=== PATIENT | male | born 1940 | race Caucasian/White ===

== ENCOUNTER → 2016-05-20 | Day surgery (SDC) | payer OTHER ==
[~2016-05-20] VITALS: Ht 175.3 cm; Wt 136.1 kg
[~2016-05-20] MED LIST: AMARYL4 M1 PO; AMBIEN (MONOGRAP5 MG PO; AMBIEN5 M1 PO; ASPIRIN325 M2 PO; B-COMPLEX1 TAB PO; BYDUREON P2 MG/0.65 SC; CALCIUM 600600 M1 PO; CALCIUM600 M2 PO; CIPRO500 M1 PO; CLARITIN10 M1 PO; CYCLOBENZAPRIN7.5 M1 PO; FINASTERIDE5 MG PO; FLONASE ALLERG9.9 ML; GLIMEPIRIDE4 MG PO; GOOD SENSE ASP325 MG PO; JANUMET 50-1,01 EACH PO; JANUMET 500 MG-1 TAB PO; LYRICA75 M1 PO; LYRICA75 MG PO; METFORMIN HCL1000 M2 PO; METOPROLOL SUCC ER 5; MULTI-DAY VITA1 EACH PO; MULTIVITAMIN1 TAB PO; NIASPAN500 M1 PO; NIASPAN500 MG PO; NITROSTAT 0.4MG1 BO2 SL; OXYCODONE HCL10 M2 PO; PERCOCET 325 MG1 TA3 PO; PRAVACHOL20 M2 PO; PRAVASTATIN40 MG PO; PRINIVIL 5MG5 MG PO; PRINIVIL5 M1 PO; PROTONIX40 M3 PO; REQUIP1 M1 PO; ROPINIROLE HYDRO1 MG PO; TAMSULOSIN HCL0.4 M1 PO; TAMSULOSIN HYD0.4 MG PO; TOPROL XL 25MG25 MG PO; TOPROL XL 50MG50 MG PO; TOPROL XL25 M1 PO; TOPROL XL50 M1 PO; VOLTAREN GEL1% TOP; ZOLPIDEM TARTRAT5 M1 PO; [UNRECOGNIZED DRUG - OTHER]
--- NOTE | 2016-05-20 11:25 | Operative Report ---
Operative/Inv Procedure Report Surgery Date: 05/20/16 Name of Procedure: cystoscopy: LEFT ureteroscopy laser lithotrypsy of ureter stone. Left stent placement. 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 left upper pole calyx with strictured calyx obstructing access to calyx stones. Post-Operative Diagnosis: left ureter stone with stricture, and left UP strictured calyx with stones. Estimated Blood Loss: scant Surgeon/Bag Machine Helper: MARC FRASER MD Anesthesia: laryngeal mask airway Specimens: left ureter stone. Complications: none Operative/Procedure Note Note: The patient was taken to the operating room, and placed on the OR table in supine position. Timeout was performed, with the patient awake, in order to confirm correct identity, procedure, laterality, anesthesia, and other pertinent perioperative information. After adequate anesthesia and antibiotics, the patient was then placed lithotomy stirrups, draped and prepped in the usual surgical fashion. A 22 Togolese cystoscope sheath with 30 angle lens was inserted into the bladder without difficulty. Upon entering the bladder, the bladder was noted to be free of tumor free of stone. Both orifices were in their orthotopic position. The left ureter orifice was intubated with an 8fr cone-tip catheter and a retrograde pyelogram with fluoroscopy was performed revealing the 6 mm mid-left ureter stone, mid-ureter stricture, and proximal mild hydronephrosis. The cone-tipped catheter was removed, followed by insertion of a 0.035 Glidewire. The gluidewire was advanced into the left renal pelvis without difficulty. Correct placement of the wire was confirmed with fluoroscopy. Leaving the Glidewire in place, a flexible ureteroscope was advanced/rail-roaded over the gluidewire (with fluoroscopic visualization) and advanced into the bladder, and then into the left ureter, without significant difficulty. The ureteroscope was ealily advanced/inserted under direct visualization. Pyeloscopy and calyxoscopy was performed revealing no visible stones, but with findings noted in this report of upper calyx stone-obstructed lumen. The ureteroscope was retracted to the level of the mid ureter, and the ureteral stone was visualized. Under direct visualization the 200 g holmium YAG laser fiber was inserted through the ureteroscope. With the laser fiber in direct contact with the stone, laser lithotripsy was performed in order to pulverize the stone into multiple tiny fragments. The fragments were extracted by the [employer] and sent to pathology. The entire length of the ureter was visualize carefully on the way out with the ureteroscope, and no further stones, tumor, or strictures were confirmed. The 22 Togolese cystoscope sheath with a 30 angle lens was inserted once again, into the bladder. The left orifice was visualized, and a 0.035 Glidewire was then advanced into the left ureter. The Glidewire was advanced into the left renal pelvis, with fluoroscopic visualization, without difficulty. Over this Glidewire, a 6 x 22 Bard onlay stent was railroaded, with direct cystoscopic visualization, and fluoroscopic visualization. When the stent was in proper place, the Glidewire was removed, and the stent remained in good position. The bladder was then drained after the cystoscope was removed. The patient tolerated the procedures well, and was then taken to the recovery room in satisfactory condition. After discharge with abx. and pain meds, the patient is insturcted to have follow renal US, and post-op visit in 2-4 weeks. Findings: left mid ureter stricture, left 6mm ureter stone. left upper pole calyx with scarred lumen resulting in obstruction and inaccessable calyx stones. Discharge Disposition: PACU Additional Comments: will need to keep stent for 6 weeks. CC: MARC FRASER MD
--- NOTE | 2016-05-20 14:53 | RADIOLOGY REPORT ---
EXAMINATION: XR ABDOMEN CLINICAL INDICATION: History of left sided ureteroscopy, lithotripsy and stent placement. COMPARISON: CT abdomen and pelvis, 05/14/2016. TECHNIQUE: Intraoperative C-arm fluoroscopic imaging of the left abdomen was utilized. Four spot fluoroscopy images of the left abdomen are submitted into the electronic picture archive. FLUOROSCOPY TIME: 1.4 minutes. DOSE: 26.1 mGy FINDINGS: Please refer to the operative report regarding the intraoperative findings and the specific procedures performed. The last two saved images demonstrate a left ureteral stent in place; the proximal loop of the stent is at the level of the renal pelvis and distal loop is at the level of the bladder. IMPRESSION: Fluoroscopic imaging assistance was provided to the operating room for urologic procedures.
== END ==
LOC: STS 02:07
DX: N13.2 Hydronephrosis with renal and ureteral calculous obstruction (principal); N13.1 Hydronephrosis with ureteral stricture, not elsewhere classified; N28.9 Disorder of kidney and ureter, unspecified; I10 Essential (primary) hypertension; E11.9 Type 2 diabetes mellitus without complications; Z79.84 Long term (current) use of oral hypoglycemic drugs
CPT/HCPCS: 74000; 82355; C2617; J0131; J1100; J2250; J2405

== ENCOUNTER 2016-07-04 08:29 | Inpatient (IN) | payer OTHER ==
[~2016-07-04] VITALS: Ht 175.3 cm; Wt 131.5 kg
[~2016-07-04 08:29] MED LIST changes: -BYDUREON P2 MG/0.65 SC; -CYCLOBENZAPRIN7.5 M1 PO; -FLONASE ALLERG9.9 ML; -LYRICA75 M1 PO; -METFORMIN HCL1000 M2 PO; -OXYCODONE HCL10 M2 PO; -TAMSULOSIN HCL0.4 M1 PO; -TOPROL XL50 M1 PO; -ZOLPIDEM TARTRAT5 M1 PO
--- NOTE | 2016-07-04 08:42 | NUR ---
76 Y/O MALE BIBA FROM HOME FOR EVAL OF LOWER EXTREMITY PAIN AND FEVERS SINCE THURSDAY. PT STATES HE HAD A STENT REMOVED BY DR FRASER AND BEGAN NOT FEELING WELL THE NEXT DAY (). PT REPORTS GENERAL PAIN - TO UPPER BACK, BILATERAL LOWER EXTREMITIES AND "WAIST". PT DENIES N/V/D. DENIES CHEST PAIN. DENIES SOB. STATES HE HAD A FEVER AT HOME, 99.6 ON ARRIVAL TO ED. DEYA NAJERA H INTO EVAL.
--- NOTE | 2016-07-04 08:46 | ED GENERAL ADULT ---
History of Present Illness General Chief Complaint: General Adult Stated Complaint: BIBA PAIN FROM WAIST DOWN, FEVER Source: patient, family, old records, EMS Exam Limitations: no limitations Vital Signs & Intake/Output Vital Signs & Intake/Output Vital Signs Date Time Temp Pulse Resp B/P Pulse O2 O2 Flow FiO2 Ox Delivery Rate 07/04 1819 92 Room Air 07/04 1819 99.6 95 20 118/74 92 Room Air 07/04 1717 94 Room Air 07/04 1645 99.2 94 18 142/65 94 Room Air 07/04 1439 98.7 94 18 123/71 95 Room Air 07/04 1308 100 Room Air 07/04 1058 99.0 07/04 1038 99.0 96 18 127/58 97 Room Air 07/04 0837 96 Room Air 07/04 0832 100.6 110 16 140/72 96 Room Air Allergies Coded Allergies: fentanyl (GI UPSET 06/22/15) Uncoded Allergies: med used during stress test (UNKNOWN 01/14/16) Triage Note: 76 Y/O MALE LADI FROM HOME FOR EVAL OF LOWER EXTREMITY PAIN AND FEVERS SINCE THURSDAY. PT STATES HE HAD A STENT REMOVED BY DR MEYERS AND BEGAN NOT FEELING WELL THE NEXT DAY (). PT REPORTS GENERAL PAIN - TO UPPER BACK, BILATERAL LOWER EXTREMITIES AND "WAIST". PT DENIES N/V/D. DENIES CHEST PAIN. DENIES SOB. STATES HE HAD A FEVER AT HOME, 99.6 ON ARRIVAL TO ED. DEYA Marrero INTO EVAL. Triage Nurses Notes Reviewed? yes HPI: Patient is a 76-year-old male presents complaining of fevers, diffuse body aches , generalized weakness, left low back pain. Patient reports that Thursday he had a left sided ureteral stent removed by Dr. Meyers. Body aches began at 7 PM. Pain is diffuse, severe, no improvement with taking an additional dose of his 10mg oxycodone. Fever up to 101.6F. Positive associated nausea. Patient denies dysuria, hematuria, cough, dyspnea, chest pain, rashes. (BALTAZAR OSWALD) Reconcile Medications Aspirin (Aspirin*) 325 MG TABLET 1 TAB PO DAILY BLOOD THINNER (Reported) Exenatide Microspheres (Bydureon Pen) 2 MG/0.65 ML PEN.INJCTR 1 INJ SC ONCE A WEEK DIABETES (Reported) Glimepiride (Amaryl) 4 MG TABLET 1 TAB PO DAILY DIABETES (Reported) Lisinopril (Prinivil) 5 MG TABLET 1 TAB PO DAILY BP (Reported) Loratadine (Claritin) 10 MG TAB 10 MG PO DAILY ALLERGIES (Reported) Metoprolol Succ XL (Toprol Xl) 50 MG TAB 1 TAB PO DAILY BLOOD PRESSURE ( Reported) Multivitamin (Multi-Day Vitamins) 1 EACH TABLET 1 TAB PO DAILY SUPPLEMENT ( Reported) Niacin (Niaspan) 500 MG TAB.ER.24H 1 TAB PO QPM CHOLESTEROL (Reported) Oxycodone HCl 10 MG TABLET 1 TAB PO BID PRN pain (Reported) Pantoprazole Sodium (Protonix) 40 MG TAB 40 MG PO DAILY GERD (Reported) Pravastatin Sodium (Pravachol) 20 MG TABLET 1 TAB PO QPM CHOLESTEROL ( Reported) Pregabalin (Lyrica) 75 MG CAP 1 CAP PO BID PAIN (Reported) Ropinirole HCl (Requip) 1 MG TABLET 1 TAB PO QPM RESTLESS LEGS (Reported) Sitagliptin Phos/Metformin HCl (Janumet 50-1,000 MG Tablet) 1 EACH TABLET 1 TAB PO BID DIABETES (Reported) Tamsulosin HCl 0.4 MG CAP.ER.24H 0.5 CAP PO DAILY URINARY OBSTRUCTION ( Reported) Vitamin B [id number] (B-Complex) 1 TAB TAB 1 TAB PO DAILY SUPPLEMENT (Reported ) (DAJA PEREIRA DO) Past History Travel History Traveled to [place] past 21 day No Medical History Any Pertinent Medical History? 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 No (REAL FALK,BALTAZAR) Review of Systems Review of Systems Constitutional: Reports: chills, fever, malaise, weakness. EENTM: Reports: no symptoms. Respiratory: Denies: cough, short of breath. Cardiovascular: Denies: chest pain. GI: Reports: nausea. Denies: abdominal pain, diarrhea, distention, vomiting. Genitourinary: Reports: see HPI. Denies: dysuria, hematuria. Musculoskeletal: Reports: see HPI, back pain, muscle pain. Skin: Denies: rash. Neurological/Psychological: Reports: no symptoms. Hematologic/Endocrine: Reports: no symptoms. Immunologic/Allergic: Reports: no symptoms. (BALTAZAR OSWALD) Physical Exam Physical Exam General Appearance: alert, awake, obese Head: atraumatic, normal appearance Eyes: Bilateral: normal appearance, PERRL, EOMI. Ears, Nose, Throat: normal pharynx, normal ENT inspection, hearing grossly normal Neck: normal inspection, supple, full range of motion Respiratory: normal breath sounds, chest non-tender, no respiratory distress, lungs clear Cardiovascular: tachycardia (regular rhythm), systolic murmur Peripheral Pulses: 2+ dorsalis pedis (R), 2+ dorsalis pedis (L) Gastrointestinal: soft, non-tender Back: normal inspection, normal range of motion, no cva tenderness, no midline tenderness Extremities: normal inspection, normal capillary refill, normal range of motion, no edema Neurologic/Psych: awake, alert, oriented x 3, normal mood/affect Skin: intact, normal color, warm/dry Lymphatic: no anterior cervical bernardo Core Measures ACS in differential dx? No CVA/TIA Diagnosis: No Severe Sepsis Present: No Septic Shock Present: No (BALTAZAR OSWALD) Progress Differential Diagnoses I considered the following diagnoses in my evaluation of the patient: Sepsis, influenza, urinary tract infection, pneumonia, electrolyte abnormality, viral syndrome Plan of Care: Orders Procedure Date/time Status CBC WITHOUT DIFFERENTIAL 07/05 599 Active BASIC ELECTROLYTES PLUS BUN&CR 07/05 0500 Active Consistent Carbohydrate 2 07/04 L Complete Consistent Carbohydrate 3 07/04 D Active Vital Signs 07/04 1814 Active Teach/Educate 07/04 1814 Active Pain Treatment and Response 07/04 1814 Active Nutritional Intake, Monitor 07/04 1814 Active Isolation 07/04 1814 Active Intake & Output 07/04 1814 Active Patient Care Conference 07/04 1814 Active Activity/Ambulation 03/10 1815 Active Pathway - chart 07/04 1530 Active House Staff 07/04 1530 Active Code Status 07/04 1530 Active Admit to inpatient 07/04 1412 Active Vital Signs 07/04 1412 Active Code Status 07/04 1412 Complete Patient Data 07/04 1304 Active RAPID VIRAL INFLUENZA A 07/04 0908 Complete Intake & Output 07/04 0906 Active FingerStick- Glucose 07/04 0843 Complete CULTURE,URINE 07/04 0842 Active BLOOD CULTURE 07/04 0842 Active URINALYSIS 07/04 0842 Complete LACTIC ACID 07/04 0842 Complete COMPREHENSIVE METABOLIC PANEL 07/04 0842 Complete CBC WITHOUT DIFFERENTIAL 07/04 0842 Complete VTE Mechanical Prophylaxis 07/04 UNK Active FingerStick- Glucose 07/04 UNK Active Activity/Ambulation 07/04 UNK Active Current Medications Sig/Lux Start time Last Medication Dose Stop Time Status Admin Ceftriaxone Sodium 1,000 MG Q24 07/05 1000 AC (Rocephin) Lisinopril 5 MG DAILY 07/05 1000 AC (Prinivil) Metoprolol Succinate 50 MG DAILY 07/05 1000 AC (Toprol Xl) Patient Medication 1 UNIT 1000 07/05 1000 AC Teaching 07/05 1001 (JACK INHIBITOR EDUCATION) Patient Medication 1 UNIT 1000 07/05 1000 AC Teaching 07/05 1001 (BETA DANNA EDUCATION) Patient Medication 1 UNIT 1000 07/05 1000 AC Teaching 07/05 1001 (ANTIBIOTIC EDUCATION) Tamsulosin HCl 0.4 MG DAILY 07/05 1000 AC (Flomax) Omeprazole 40 MG DAILY AC 07/05 0700 AC (Prilosec) Patient Medication 1 UNIT 0700 07/05 0700 AC Teaching 07/05 0701 (PROTON PUMP INHIBITOR EDUCATION) Patient Medication 1 UNIT 2200 07/04 2200 AC Teaching 07/04 220 (STATIN EDUCATION) Pravastatin Sodium 20 MG QPM 07/04 2200 AC (Pravachol) Pregabalin 75 MG BID 07/04 2200 AC (Lyrica) Insulin Aspart 0 TIDAC 07/04 1700 AC (NovoLOG) Nicotinic Acid 500 MG WITH MEALS 07/04 1700 AC (Niacin 500MG Tab) Ropinirole HCl 1 MG QPM PRN 07/04 1545 AC (Requip) Acetaminophen 650 MG Q8P PRN 07/04 1530 AC (Tylenol) Oxycodone/ 1 TAB Q8P PRN 07/04 1530 AC Acetaminophen (Percocet) Laboratory Tests 07/04/16 1142: Lactic Acid Cancelled 07/04/16 1025: Urine Color YEL, Urine Clarity CLEAR, Urine pH 6.0, Ur Specific [place] 1.015, Urine Protein TRACE H, Urine Ketones NEG, Urine Nitrite NEG, Urine Bilirubin NEG, Urine Urobilinogen 0.2, Ur Leukocyte Esterase SMALL H, Ur Microscopic SEDIMENT EXAMINED, Urine RBC 10-15 H, Urine WBC 5-10 H, Ur Epithelial Cells RARE, Urine Bacteria RARE H, Hyaline Casts RARE H, Urine Mucus MOD H, Urine Hemoglobin SMALL H, Urine Glucose 100 H 07/04/16 0944: Anion Gap 11, Estimated GFR 49 L, BUN/Creatinine Ratio 15.0, Glucose 210 H, Lactic Acid 2.1, Calcium 9.3, Total Bilirubin 0.7, AST 22, ALT 25, Alkaline Phosphatase 65, Total Protein 7.2, Albumin 4.1, Globulin 3.1, Albumin/Globulin Ratio 1.3, CBC w Diff MAN DIFF ORDERED, RBC 4.29 L, MCV 86.6, MCH 29.2, RDW 14.5, MPV 7.9, Gran % 81.7 H, Lymphocytes % 12.3 L, Monocytes % 5.4, Eosinophils % 0, Basophils % 0.6, Absolute Granulocytes 15.8 H, Segmented Neutrophils 76 H, Band Neutrophils 1, Absolute Lymphocytes 2.4, Lymphocytes 14 L, Monocytes 9, Absolute Monocytes 1.0 H, Absolute Eosinophils 0, Absolute Basophils 0.1, Platelet Estimate ADEQUATE, Normocytic RBCs VERIFIED, Normochromic RBCs VERIFIED, PUBS MCHC 33.7 Microbiology 07/04 1058 BLOOD: Blood Culture - RECD 07/04 1050 BLOOD: Blood Culture - RECD 07/04 1025 URINE ROUT: Urine Culture - RECD 07/04 0944 NASOPHARYN: Influenza Virus A & B Rapid Smear - COMP 07/04/2016 8:51:39 AM: Discussed with and seen by Dr. Pereira 07/04/2016 10:19:33 AM: Patient reports feeling moderately improved. Continues with bilateral lower extremity weakness but reports he has improving range of motion and strength. Results of CBC discussed with patient. Awaiting urinalysis. 07/04/2016 11:12:42 AM: Results of labs and ultrasound discussed with patient and his family. Dr. Meyers paged. 07/04/2016 11:31:49 AM: Discussed with Dr. Meyers: give 1 gram of ceftriaxone. If patient clinically stable then can discharge on 500mg cipro BID x 10 days. 07/04/2016 12:49:07 PM: Patient seen by Dr. Meyers: recommends admission for IV antibiotics. (REAL FALK,BALTAZAR) Diagnostic Imaging: Viewed by Me: Ultrasound. Discussed w/RAD: Ultrasound. Radiology Impression: PATIENT: MONY COYLE PRESENT AGE: 76 PATIENT ACCOUNT NO: [id number] : 41 LOCATION: [facility] ORDERING PHYSICIAN: BALTAZAR FALK SERVICE DATE: 07/04/16 EXAM TYPE: US - US-RENAL/KIDNEY EXAMINATION: US RETROPERITONEAL COMPLETE (RENAL) CLINICAL INFORMATION: Left-sided back pain, history of urolithiasis and hydronephrosis. COMPARISON: CT dated 05/14/2016. TECHNIQUE: Real-time imaging of the kidneys and bladder. Selected static images provided for interpretation. Exam is limited due to patient body habitus, especially the upper poles. FINDINGS: RIGHT KIDNEY: 10.6 x 5.2 x 5.4 cm (SAG x AP x TRV). The visualized right kidney is normal in size, contour, and echogenicity. Renal cortical thickness is normal. No calculi or focal parenchymal lesions. No hydronephrosis. LEFT KIDNEY: 11.2 x 6.0 x 6.3 cm (SAG x AP x TRV). There is a 0.7 cm maximal dimension echogenic focus in the upper pole of the right kidney consistent with a residual calculus. The kidney is normal in size, contour, and echogenicity. Renal cortical thickness is normal. There is no hydronephrosis. BLADDER: Moderately fluid-filled containing 153 mL. A left ureteral jet is identified, the right ureteral jet is not seen. IMPRESSION: Limited exam, small residual left upper renal pole calculus is suspected. There is no hydronephrosis on today's exam. DICTATED BY: LUCIANO RAMÍREZ MD DATE/TIME DICTATED:07/04/16949 MEDICAL CONCIERGE:JANET DATE/TIME TRANSCRIBED:07/04/16949 CONFIDENTIAL, DO NOT COPY WITHOUT APPROPRIATE AUTHORIZATION. <Electronically signed in Other Vendor System> SIGNED BY: LUCIANO RAMÍREZ MD 07/04/16 1100 Initial ED EKG: none (BALTAZAR OSWALD) Departure Departure Disposition: STILL A PATIENT Condition: Stable Clinical Impression Primary Impression: Sepsis secondary to UTI Referrals: INDIGO ALFARO MD (PCP/Family) Departure Forms: Customer Survey General Discharge Information Admission Note Spoke With: ERMELINDA HOLLOWAY MD Documentation of Exam: Documentation of any treatments & extenuating circumstances including Concerns Regarding Discharge (functional status, medication knowledge or non-compliance, living conditions, etc.) that warrant an admission rather than observation: IV antibiotics and close monitoring. With patient's diabetes is generalized weakness, fevers with elevated white blood cell count and tachycardia and presentation patient is criteria for sepsis. Concern that patient would deteriorate if discharged home on oral antibiotics. (BALTAZAR OSWALD) PA/RIDES SUPERVISOR Co-Sign Statement Statement: ED Attending supervision documentation- [X] I saw and evaluated the patient. I have also reviewed all the pertinent lab results and diagnostic results. I agree with the findings and the plan of care as documented in the PA's/RIDES SUPERVISOR's documentation. [] I have reviewed the ED Record and agree with the PA's/RIDES SUPERVISOR's documentation. [] Additions or exceptions (if any) to the PAs/RIDES SUPERVISOR's note and plan are summarized below: [] (DAJA PEREIRA DO) Critical Care Note Critical Care Note Critical Care Time: non-applicable (BALTAZAR OSWALD)
[2016-07-04] MEDS ORDERED: OXYCODONE HCL10 M2 PO (08:58)
--- NOTE | 2016-07-04 09:05 | NUR ---
IV EST. NORMAL SALINE INFUSING. MED WITH DILAUDID AND ZOFRAN PER JUN. PT DENIES KNOWN ALLERGY TO SAME STATING HE HAS HAD DILAUDID BEFORE. MED WITH TYLENOL PO. TOLERATED WELL. TAKEN TO US VIA STRETCHER
--- NOTE | 2016-07-04 09:47 | NUR ---
BLOOD DRAWN AND SENT TO THE LAB (SST,LAV,BLUE,PINK,[facility])
--- NOTE | 2016-07-04 09:54 | NUR ---
BACK FROM US. FLU SWAB OBTAINED AND SENT. DENIES COMPLAINTS, DENIES NEEDING ANYTHING AT THIS TIME.
[2016-07-04] MEDS ORDERED: BYDUREON P2 MG/0.65 SC (09:57)
[2016-07-04 09:59] LABS: ABSOLUTE BASOPHIL COUNT 0.1 /CUMM (0.0-0.2); ABSOLUTE EOSINOPHIL COUNT 0 /CUMM (0.0-0.7); ABSOLUTE GRANULOCYTE CT 15.8 /CUMM (1.4-6.5); ABSOLUTE LYMPH COUNT 2.4 /CUMM (1.2-3.4); BASOPHIL % 0.6 % (0.0-2.0); EOSINOPHIL % 0 % (0-5); GRANULOCYTE % 81.7 % (42.2-75.2); HEMATOCRIT 37.2 % (42-52); MEAN CORPUSCULAR HGB 29.2 PG (27.0-31.0); MEAN CORPUSCULAR HGB CONC 33.7 G/DL (33.0-37.0); MEAN CORPUSCULAR VOLUME 86.6 FL (80.0-94.0); MEAN PLATELET VOLUME 7.9 FL (7.4-10.4); PLATELET COUNT 223 /CUMM (130-400); RBC DISTRIBUTION WIDTH 14.5 % (11.5-14.5); RED BLOOD CELL CT 4.29 /CUMM (4.70-6.10); WHITE BLOOD CELL COUNT 19.3 /CUMM (4.8-10.8)
--- NOTE | 2016-07-04 11:00 | ULTRASOUND REPORT ---
EXAMINATION: US RETROPERITONEAL COMPLETE (RENAL) CLINICAL INFORMATION: Left-sided back pain, history of urolithiasis and hydronephrosis. COMPARISON: CT dated 05/14/2016. TECHNIQUE: Real-time imaging of the kidneys and bladder. Selected static images provided for interpretation. Exam is limited due to patient body habitus, especially the upper poles. FINDINGS: RIGHT KIDNEY: 10.6 x 5.2 x 5.4 cm (SAG x AP x TRV). The visualized right kidney is normal in size, contour, and echogenicity. Renal cortical thickness is normal. No calculi or focal parenchymal lesions. No hydronephrosis. LEFT KIDNEY: 11.2 x 6.0 x 6.3 cm (SAG x AP x TRV). There is a 0.7 cm maximal dimension echogenic focus in the upper pole of the right kidney consistent with a residual calculus. The kidney is normal in size, contour, and echogenicity. Renal cortical thickness is normal. There is no hydronephrosis. BLADDER: Moderately fluid-filled containing 153 mL. A left ureteral jet is identified, the right ureteral jet is not seen. IMPRESSION: Limited exam, small residual left upper renal pole calculus is suspected. There is no hydronephrosis on today's exam.
--- NOTE | 2016-07-04 11:06 | NUR ---
2ND LITER INFUSING PER JUN PT STATES PAIN IS NOW 8/10. MEDICATED WITH ADDITIONAL 1MG DILAUDID PER JUN DEYA TOBAR DISCUSS RESULTS.
--- NOTE | 2016-07-04 11:44 | NUR ---
PT DENIES COMPLAINTS LUNCH ORDERED - OK WITH DEYA RYAN WITH MAGDALENO PER MAR
--- NOTE | 2016-07-04 12:16 | NUR ---
PT SITTING UP AT EDGE OF BED EATING LUNCH TRAY DENIES COMPLAINTS.
--- NOTE | 2016-07-04 12:49 | NUR ---
DR FRASER INTO EVAL
--- NOTE | 2016-07-04 13:09 | Cons- Urology ---
General Information and HPI Consulting Request Date of Consult: 07/04/16 Requested By: gabriela perez [facility]reg[facility]-emergency dept. Reason for Consult: uti-fatigue Source of Information: patient Exam Limitations: no limitations History of Present Illness: 76 year old with complex hx stones and uti. doing well for months with left stent--removed in office after receiving IV gentamicin 160mg. Today with severe weekness and overall ache. AOx3. Allergies/Medications Allergies: Coded Allergies: fentanyl (GI UPSET 06/22/15) Uncoded Allergies: med used during stress test (UNKNOWN 01/14/16) Home Med List: Aspirin (Aspirin*) 325 MG TABLET 1 TAB PO DAILY BLOOD THINNER (Reported) Exenatide Microspheres (Bydureon Pen) 2 MG/0.65 ML PEN.INJCTR 1 INJ SC ONCE A WEEK DIABETES (Reported) Glimepiride (Amaryl) 4 MG TABLET 1 TAB PO DAILY DIABETES (Reported) Lisinopril (Prinivil) 5 MG TABLET 1 TAB PO DAILY BP (Reported) Loratadine (Claritin) 10 MG TAB 10 MG PO DAILY ALLERGIES (Reported) Metoprolol Succ XL (Toprol XL) 25 MG TAB 1 TAB PO QPM BP (Reported) Multivitamin (Multi-Day Vitamins) 1 EACH TABLET 1 TAB PO DAILY SUPPLEMENT ( Reported) Niacin (Niaspan) 500 MG TAB.ER.24H 1 TAB PO QPM CHOLESTEROL (Reported) Oxycodone HCl 10 MG TABLET 1 TAB PO BID PRN pain (Reported) Pantoprazole Sodium (Protonix) 40 MG TAB 40 MG PO DAILY GERD (Reported) Pravastatin Sodium (Pravachol) 20 MG TABLET 1 TAB PO QPM CHOLESTEROL ( Reported) Pregabalin (Lyrica) 75 MG CAP 1 CAP PO BID PAIN (Reported) Ropinirole HCl (Requip) 1 MG TABLET 1 TAB PO QPM RESTLESS LEGS (Reported) Sitagliptin Phos/Metformin HCl (Janumet 50-1,000 MG Tablet) 1 EACH TABLET 1 TAB PO BID DIABETES (Reported) Vitamin B Droekpg59 (B-Complex) 1 TAB TAB 1 TAB PO DAILY SUPPLEMENT (Reported ) Current Medications: Current Medications Sig/Ulx Start time Last Medication Dose Route Stop Time Status Admin Acetaminophen 0 .STK-MED ONE 07/04 857 DC PO Acetaminophen 650 MG ONCE ONE 07/04 844 DC 07/04 PO 03/10 0846 0907 Ceftriaxone Sodium 0 .STK-MED ONE 07/04 1138 DC .ROUTE Ceftriaxone Sodium 1,000 MG ONCE ONE 07/04 1130 DC 07/04 IV 07/04 1131 1144 Hydromorphone HCl 1 MG ONCE ONE 07/04 1115 DC / IV 07/04 1116 1106 Hydromorphone HCl 0 .STK-MED ONE 07/04 1106 DC .ROUTE Hydromorphone HCl 0 .STK-MED ONE 07/04 0858 DC .ROUTE Hydromorphone HCl 1 MG ONCE ONE 07/04 0845 DC 07/04 IV 07/04 0846 0907 Ondansetron HCl 4 MG ONCE ONE 07/04 0900 DC 07/04 IV 07/04 0901 0908 Ondansetron HCl 0 .STK-MED ONE 07/04 0858 DC .ROUTE Sodium Chloride 1,000 ML BOLUS ONE 07/04 1015 DC 07/04 IV 07/04 1114 1106 Sodium Chloride 1,000 ML BOLUS ONE 07/04 0845 DC 07/04 IV 07/04 0944 0907 Past History Medical History Neurological: migraine EENT: NONE Cardiovascular: hypertension, hyperlipidemia, STENTS 2008 nuclear stress test normal Respiratory: NONE Gastrointestinal: diverticulitis, GERD Hepatic: NONE Renal: KIDNEY STONE Musculoskeletal: osteoarthritis Psychiatric: NONE Endocrine: diabetes Blood Disorders: DVT Cancer(s): SKIN CA 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 spouse Services at Home: None Functional Ability ADLs Independent: dressing. Ambulation: independent IADLs Independent: shopping. Employment History Employment: Retired Retired? yes Review of Systems Review of Systems Constitutional: Reports: malaise, weakness. EENTM: Denies: no symptoms. Cardiovascular: Denies: no symptoms. Respiratory: Denies: no symptoms. GI: Reports: bloating. Genitourinary: Denies: no symptoms. Musculoskeletal: Reports: see HPI. Skin: Denies: no symptoms. Exam & Diagnostic Data Vital Signs and I&O Vital Signs Date Time Temp Pulse Resp B/P Pulse O2 O2 Flow FiO2 Ox Delivery Rate 07/04 1058 99.0 03/10 1038 99.0 96 18 127/58 97 Room Air 07/04 0837 96 Room Air 07/04 0832 100.6 110 16 140/72 96 Room Air Intake & Output 07/04 1600 07/04 0800 07/04 0000 07/03 1600 07/03 0800 07/03 0000 Intake Total 2000 Output Total 200 Balance 1800 Intake, IV 2000 Output, Urine 200 Patient 290 lb Weight Physical Exam General Appearance: well developed/nourished, obese Head: atraumatic Neck: normal inspection Respiratory: normal breath sounds Cardiovascular: regular rate/rhythm Gastrointestinal: normal bowel sounds Back: no vertebral tenderness Extremities: normal inspection Reproductive: Normal male genitalia Last 24 Hours of Labs: Laboratory Tests 07/04 07/04 1142 1025 Chemistry Lactic Acid Cancelled Urines Urine Color (YEL,AMB,STR) YEL Urine Clarity (CLEAR) CLEAR Urine pH (5.0 - 8.0) 6.0 Ur Specific [place] (1.001 - 1.035) 1.015 Urine Protein (NEG,<30 MG/DL) TRACE H Urine Ketones (NEG) NEG Urine Nitrite (NEG) NEG Urine Bilirubin (NEG) NEG Urine Urobilinogen (0.1 - 1.0 EU/dl) 0.2 Ur Leukocyte Esterase (NEG) SMALL H Ur Microscopic SEDIMENT EXAMINED Urine RBC (0 - 5 /HPF) 10-15 H Urine WBC (0 - 2 /HPF) 5-10 H Ur Epithelial Cells (NONE,FEW) RARE Urine Bacteria (NEG/NONE) RARE H Hyaline Casts (0/LPF) RARE H Urine Mucus (FEW,NONE) MOD H Urine Hemoglobin (NEG) SMALL H Urine Glucose (N MG/DL) 100 H 07/04 0944 Chemistry Sodium (137 - 145 mmol/L) 134 L Potassium (3.5 - 5.1 mmol/L) 4.6 Chloride (98 - 107 mmol/L) 101 Carbon Dioxide (22 - 30 mmol/L) 22 Anion Gap (5 - 16) 11 BUN (9 - 20 mg/dL) 21 H Creatinine (0.7 - 1.2 mg/dL) 1.4 H Estimated GFR (>60 ml/min) 49 L BUN/Creatinine Ratio (7 - 25 %) 15.0 Glucose (65 - 99 mg/dL) 210 H Lactic Acid (0.7 - 2.1 mmol/L) 2.1 Calcium (8.4 - 10.2 mg/dL) 9.3 Total Bilirubin (0.2 - 1.3 mg/dL) 0.7 AST (17 - 59 U/L) 22 ALT (21 - 72 U/L) 25 Alkaline Phosphatase (< 127 U/L) 65 Total Protein (6.3 - 8.2 g/dL) 7.2 Albumin (3.5 - 5.0 g/dL) 4.1 Globulin (1.9 - 4.2 gm/dL) 3.1 Albumin/Globulin Ratio (1.1 - 2.2 %) 1.3 Hematology CBC w Diff MAN DIFF ORDERED WBC (4.8 - 10.8 /CUMM) 19.3 H RBC (4.70 - 6.10 /CUMM) 4.29 L Hgb (14.0 - 18.0 G/DL) 12.5 L Hct (42 - 52 %) 37.2 L MCV (80.0 - 94.0 FL) 86.6 MCH (27.0 - 31.0 PG) 29.2 RDW (11.5 - 14.5 %) 14.5 Plt Count (130 - 400 /CUMM) 223 MPV (7.4 - 10.4 FL) 7.9 Gran % (42.2 - 75.2 %) 81.7 H Lymphocytes % (20.5 - 51.1 %) 12.3 L Monocytes % (1.7 - 9.3 %) 5.4 Eosinophils % (0 - 5 %) 0 Basophils % (0.0 - 2.0 %) 0.6 Absolute Granulocytes (1.4 - 6.5 /CUMM) 15.8 H Segmented Neutrophils (42.2 - 75.2 %) 76 H Band Neutrophils (0.0 - 5.0 %) 1 Absolute Lymphocytes (1.2 - 3.4 /CUMM) 2.4 Lymphocytes (20.5 - 51.1 %) 14 L Monocytes (1.7 - 9.3 %) 9 Absolute Monocytes (0.10 - 0.60 /CUMM) 1.0 H Absolute Eosinophils (0.0 - 0.7 /CUMM) 0 Absolute Basophils (0.0 - 0.2 /CUMM) 0.1 Platelet Estimate (ADEQUATE) ADEQUATE Normocytic RBCs VERIFIED Normochromic RBCs VERIFIED PUBS MCHC (33.0 - 37.0 G/DL) 33.7 Imaging Results: PATIENT: MONY COYLE PRESENT AGE: 76 PATIENT ACCOUNT NO: [id number] : 41 LOCATION: [facility] ORDERING PHYSICIAN: BALTAZAR FALK SERVICE DATE: 07/04/16 EXAM TYPE: US - US-RENAL/KIDNEY EXAMINATION: US RETROPERITONEAL COMPLETE (RENAL) CLINICAL INFORMATION: Left-sided back pain, history of urolithiasis and hydronephrosis. COMPARISON: CT dated 05/14/2016. TECHNIQUE: Real-time imaging of the kidneys and bladder. Selected static images provided for interpretation. Exam is limited due to patient body habitus, especially the upper poles. FINDINGS: RIGHT KIDNEY: 10.6 x 5.2 x 5.4 cm (SAG x AP x TRV). The visualized right kidney is normal in size, contour, and echogenicity. Renal cortical thickness is normal. No calculi or focal parenchymal lesions. No hydronephrosis. LEFT KIDNEY: 11.2 x 6.0 x 6.3 cm (SAG x AP x TRV). There is a 0.7 cm maximal dimension echogenic focus in the upper pole of the right kidney consistent with a residual calculus. The kidney is normal in size, contour, and echogenicity. Renal cortical thickness is normal. There is no hydronephrosis. BLADDER: Moderately fluid-filled containing 153 mL. A left ureteral jet is identified, the right ureteral jet is not seen. IMPRESSION: Limited exam, small residual left upper renal pole calculus is suspected. There is no hydronephrosis on today's exam. Assessment/Plan Assessment/Plan uti post stent removal: no obstruction.: plan iv abx would benefit pt for admit briefly. Copies To: MARC FRASER MD Consult Acknowledgment - Thank you for your consult request. Attending MD Review Statement Attending Statement Attending MD Statement: examined this patient, discuss w/resident/PA/ASSISTANT IN NURSING Attending Assessment/Plan: pt with UTI and hx severe sepsis. would admit for IV abx/hydration and close monitoring for nowjunitl cultures results done.
--- NOTE | 2016-07-04 13:25 | History & Physical ---
TRAVIS HAMEED,[facility] 07/04/16 1324: General Information and HPI MD Statement: I have seen and personally examined MONY COYLE and documented this H&P. The patient is a 76 year old M who presented with a patient stated chief complaint of generalized pain and fevers. Source of Information: patient Exam Limitations: no limitations History of Present Illness: Mr Coyle is a 76 year old male with PMH of NIDDM, HTN, HLD, CAD s/p stent in 2001, right leg DVT s/p IVC filter in 2005 who presented to the emergency department on 07/04/2016 after experiencing pain and fevers over the last 24 hours. The patient states that on Thursday07/02/2016 he had undergone a left stent removal procedure under the care of Dr. Meyers. He tolerated this procedure well. On 07/03/2016, he began to experience subjective fevers which trended like so: 101.6 --> 101.4 -->100.5. The patient also developed generalized body pain which he describes "as the worst pain in his life". Coupled with the above he was also extremely weak stating that while he was at a islam function he was unable to stand. The patient took three oxycodone tablets however had no relief from his symptoms. Prior to coming in the patient also had one episode of dry heaves which which he experienced at approximately 4 AM on the morning of admission. The patient also states that over the last 12 months he has had multiple episodes of renal stones. The patient denies any chest pain, shortness of breath, difficulty breathing, orthopnea, dyspnea, palpitations. He reports no changes to his bowel habits. He denies any urinary discharge, frequency, dysuria, hematuria. The patient lives at home with his . Allergies/Medications Allergies: Coded Allergies: fentanyl (GI UPSET 06/22/15) Uncoded Allergies: med used during stress test (UNKNOWN 01/14/16) Home Med list Aspirin (Aspirin*) 325 MG TABLET 1 TAB PO DAILY BLOOD THINNER (Reported) Exenatide Microspheres (Bydureon Pen) 2 MG/0.65 ML PEN.INJCTR 1 INJ SC ONCE A WEEK DIABETES (Reported) Glimepiride (Amaryl) 4 MG TABLET 1 TAB PO DAILY DIABETES (Reported) Lisinopril (Prinivil) 5 MG TABLET 1 TAB PO DAILY BP (Reported) Loratadine (Claritin) 10 MG TAB 10 MG PO DAILY ALLERGIES (Reported) Metoprolol Succ XL (Toprol Xl) 50 MG TAB 1 TAB PO DAILY BLOOD PRESSURE ( Reported) Multivitamin (Multi-Day Vitamins) 1 EACH TABLET 1 TAB PO DAILY SUPPLEMENT ( Reported) Niacin (Niaspan) 500 MG TAB.ER.24H 1 TAB PO QPM CHOLESTEROL (Reported) Oxycodone HCl 10 MG TABLET 1 TAB PO BID PRN pain (Reported) Pantoprazole Sodium (Protonix) 40 MG TAB 40 MG PO DAILY GERD (Reported) Pravastatin Sodium (Pravachol) 20 MG TABLET 1 TAB PO QPM CHOLESTEROL ( Reported) Pregabalin (Lyrica) 75 MG CAP 1 CAP PO BID PAIN (Reported) Ropinirole HCl (Requip) 1 MG TABLET 1 TAB PO QPM RESTLESS LEGS (Reported) Sitagliptin Phos/Metformin HCl (Janumet 50-1,000 MG Tablet) 1 EACH TABLET 1 TAB PO BID DIABETES (Reported) Tamsulosin HCl 0.4 MG CAP.ER.24H 0.5 CAP PO DAILY URINARY OBSTRUCTION ( Reported) Vitamin B [id number] (B-Complex) 1 TAB TAB 1 TAB PO DAILY SUPPLEMENT (Reported ) Compliance With Home Meds: GOOD Past History Travel History Traveled to [place] past 21 day No Medical History Neurological: migraine EENT: NONE Cardiovascular: hypertension, hyperlipidemia, STENTS 2008 nuclear stress test normal Respiratory: NONE Gastrointestinal: diverticulitis, GERD Hepatic: NONE Renal: KIDNEY STONE Musculoskeletal: osteoarthritis Psychiatric: NONE Endocrine: diabetes Blood Disorders: DVT Cancer(s): SKIN CA 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 Home Who Do You Live With? spouse Services at Home: None Primary Language: Ukrainian Smoking Status: Former Smoker ETOH Use: denies use Illicit Drug Use: denies illicit drug use Functional Ability ADLs Independent: dressing. Ambulation: independent IADLs Independent: shopping. Employment History Employment Retired Review of Systems Review of Systems Constitutional: Reports: see HPI. EENTM: Denies: blurred vision, double vision, visual changes, eye pain. Cardiovascular: Denies: chest pain, edema, orthopena, palpitations. Respiratory: Denies: cough, hemoptysis, orthopnea, short of breath. GI: Denies: abdominal pain, bloating, constipation, diarrhea, distention. Genitourinary: Denies: discharge, dysuria, frequency, hematuria, hesitation. Exam & Diagnostic Data Last 24 Hrs of Vital Signs/I&O Vital Signs Date Time Temp Pulse Resp B/P Pulse O2 O2 Flow FiO2 Ox Delivery Rate 07/04 1439 98.7 94 18 123/71 95 Room Air 07/04 1308 100 Room Air 07/04 1058 99.0 07/04 1038 99.0 96 18 127/58 97 Room Air 07/04 0837 96 Room Air 07/04 0832 100.6 110 16 140/72 96 Room Air Intake & Output 07/04 1600 07/04 0800 07/04 0000 Intake Total 2000 Output Total 200 Balance 1800 Intake, IV 2000 Output, Urine 200 Patient 131.542 kg Weight Physical Exam General Appearance Alert, Oriented X3, Cooperative, No Acute Distress Skin No Rashes HEENT Atraumatic, Mucous Membr. moist/pink Neck Supple, No JVD, No thryomegaly Cardiovascular Regular Rate, Normal S1, Normal S2, Systolic Murmur. Most Prominenet in the Aortic Area. 3/6. Radiating to carotids. Lungs Clear to Auscultation, Normal Air Movement Abdomen Normal Bowel Sounds, Soft, No Tenderness Neurological Normal Speech, Strength at 5/5 X4 Ext Extremities Edema 3+ Last 24 Hrs of Labs/Quinn: Laboratory Tests 07/04/16 1142: Lactic Acid Cancelled 07/04/16 1025: Urine Color YEL, Urine Clarity CLEAR, Urine pH 6.0, Ur Specific Garvin 1.015, Urine Protein TRACE H, Urine Ketones NEG, Urine Nitrite NEG, Urine Bilirubin NEG, Urine Urobilinogen 0.2, Ur Leukocyte Esterase SMALL H, Ur Microscopic SEDIMENT EXAMINED, Urine RBC 10-15 H, Urine WBC 5-10 H, Ur Epithelial Cells RARE, Urine Bacteria RARE H, Hyaline Casts RARE H, Urine Mucus MOD H, Urine Hemoglobin SMALL H, Urine Glucose 100 H 07/04/16 0944: Anion Gap 11, Estimated GFR 49 L, BUN/Creatinine Ratio 15.0, Glucose 210 H, Lactic Acid 2.1, Calcium 9.3, Total Bilirubin 0.7, AST 22, ALT 25, Alkaline Phosphatase 65, Total Protein 7.2, Albumin 4.1, Globulin 3.1, Albumin/Globulin Ratio 1.3, CBC w Diff MAN DIFF ORDERED, RBC 4.29 L, MCV 86.6, MCH 29.2, RDW 14.5, MPV 7.9, Gran % 81.7 H, Lymphocytes % 12.3 L, Monocytes % 5.4, Eosinophils % 0, Basophils % 0.6, Absolute Granulocytes 15.8 H, Segmented Neutrophils 76 H, Band Neutrophils 1, Absolute Lymphocytes 2.4, Lymphocytes 14 L, Monocytes 9, Absolute Monocytes 1.0 H, Absolute Eosinophils 0, Absolute Basophils 0.1, Platelet Estimate ADEQUATE, Normocytic RBCs VERIFIED, Normochromic RBCs VERIFIED, PUBS MCHC 33.7 Microbiology 07/04 1058 BLOOD: Blood Culture - RECD 07/04 1050 BLOOD: Blood Culture - RECD 07/04 1025 URINE ROUT: Urine Culture - RECD 07/04 0944 NASOPHARYN: Influenza Virus A & B Rapid Smear - COMP Diagnostic Data Other Results SERVICE DATE: 07/04/16 EXAM TYPE: US - US-RENAL/KIDNEY EXAMINATION: US RETROPERITONEAL COMPLETE (RENAL) CLINICAL INFORMATION: Left-sided back pain, history of urolithiasis and hydronephrosis. COMPARISON: CT dated 05/14/2016. TECHNIQUE: Real-time imaging of the kidneys and bladder. Selected static images provided for interpretation. Exam is limited due to patient body habitus, especially the upper poles. FINDINGS: RIGHT KIDNEY: 10.6 x 5.2 x 5.4 cm (SAG x AP x TRV). The visualized right kidney is normal in size, contour, and echogenicity. Renal cortical thickness is normal. No calculi or focal parenchymal lesions. No hydronephrosis. LEFT KIDNEY: 11.2 x 6.0 x 6.3 cm (SAG x AP x TRV). There is a 0.7 cm maximal dimension echogenic focus in the upper pole of the right kidney consistent with a residual calculus. The kidney is normal in size, contour, and echogenicity. Renal cortical thickness is normal. There is no hydronephrosis. BLADDER: Moderately fluid-filled containing 153 mL. A left ureteral jet is identified, the right ureteral jet is not seen. IMPRESSION: Limited exam, small residual left upper renal pole calculus is suspected. There is no hydronephrosis on today's exam. DICTATED BY: LUCIANO RAMÍREZ MD Assessment/Plan Assessment: This is a 76-year-old gentleman with past medical history of multiple stones in the past was presented today with sepsis status post urinary tract infection. UTI post stent removal We'll admit the patient to general med and monitor the patient on antibiotics IV ceftriaxone 1000 mg every 24. For pain control we will administer morphine 2 mg. We will attempt to strain urine and look for any fragments that may be passing. A subsequent analysis of the type of stone might be helpful in understanding why this patient is having recurrent stones in the last 12 months. Nutritional consult can be recommended on 07/07/2016. If symptoms continue consider noncontrast helical CT. Alpha corrie to promote urethral relaxation. Patient already had a consult from urology in ED. Encourage increase fluid intake maintain target of greater than 2 L per day for urinary output to increase 2 L per day. Criteria: QSofa score at the time of admission was less than two. Hx of DM Begin the patient on Novolog Sliding scale: on admission: 228 Acuchecks: Q4. Goal blood sugar remains< 200 If sugars are uncontrollable,consider endocrinology consultation. 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 RIA Cr on admission was 1.4. Likely due to decreased PO Intake/dehydration. Repeat BEP in AM. IV hydration with Normal Saline Constipation Bowel Regimen: Senna PRN History of CAD Continue BBlocker 50 mg Daily. DVT Prophylaxis: Sub Q Heparin Diet: Consistent Carbohydrate Diet Code: Full Code As Ranked By This Provider Problem List: 1. Sepsis secondary to UTI 2. Urinary tract infection 3. HLD (hyperlipidemia) 4. HTN (hypertension) 5. Diabetes mellitus Core Measures/Miscellaneous Acute Coronary Syndrome ACS Diagnosis: No Cerebrovascular Accident CVA/TIA Diagnosis: No Congestive Heart Failure CHF Diagnosis: No Venous Thromboembolism VTE Risk Factors: Acute medical illness [facility] prophylaxis d/t: No contraindications No VTE Pharm Prophylaxis d/t: No contraindications VTE Diagnosis: No VTE Type: NONE VTE Confirmed by (Test): NONE Severe Sepsis Severe Sepsis Present: No Septic Shock Septic Shock Present: No Miscellaneous Documentation Attending Case Discussed With: JULIA HAMEED,GULSHAN Primary Care Physician: INDIGO ALFARO MD Patient sees these Specialists NA Level of Patient Care: General Medicine JULIA HAMEED,GULSHAN 07/04/16 1416: Attending MD Review Statement Attending Statement Attending MD Statement: examined this patient, discuss w/resident/PA/ENTERPRISE RECORDS ANALYST, agreed w/resident/PA/ENTERPRISE RECORDS ANALYST, reviewed EMR data (avail), discussed with nursing, reviewed images, amended to note Attending Assessment/Plan: 76 y/o M with pmh sig for NIDDM, HTN, HLD, , CKD stage 3, CAD s/p stent in 2001, right leg DVT s/p IVC filter in 2005, s/p recent left ureteral stent removal by Dr. Meyers two days after receiving Gentamicin as per Dr. Meyers's note who p/e all body aches, fever upto 101, chills, and dry heaving. He claims that every bone in his body was hurting. In the ER he was febrile 100.6 with leukocytosis of 19,000. Denies any sob, no diarrhea. Vital Signs Date Time Temp Pulse Resp B/P Pulse O2 O2 Flow FiO2 Ox Delivery Rate 07/04 1308 100 Room Air 07/04 1058 99.0 07/04 1038 99.0 96 18 127/58 97 Room Air 07/04 0837 96 Room Air 07/04 0832 100.6 110 16 140/72 96 Room Air on exam; aox3, nad. cv; s1,s2, rrr, + systolic murmur. resp; clear abd; soft, distended, bs+, no CVA tenderness. ext; no edema. PP palpable. Laboratory Tests 07/04 07/04 1142 1025 Chemistry Lactic Acid Cancelled Urines Urine Color (YEL,AMB,STR) YEL Urine Clarity (CLEAR) CLEAR Urine pH (5.0 - 8.0) 6.0 Ur Specific Garvin (1.001 - 1.035) 1.015 Urine Protein (NEG,<30 MG/DL) TRACE H Urine Ketones (NEG) NEG Urine Nitrite (NEG) NEG Urine Bilirubin (NEG) NEG Urine Urobilinogen (0.1 - 1.0 EU/dl) 0.2 Ur Leukocyte Esterase (NEG) SMALL H Ur Microscopic SEDIMENT EXAMINED Urine RBC (0 - 5 /HPF) 10-15 H Urine WBC (0 - 2 /HPF) 5-10 H Ur Epithelial Cells (NONE,FEW) RARE Urine Bacteria (NEG/NONE) RARE H Hyaline Casts (0/LPF) RARE H Urine Mucus (FEW,NONE) MOD H Urine Hemoglobin (NEG) SMALL H Urine Glucose (N MG/DL) 100 H 07/04 0944 Chemistry Sodium (137 - 145 mmol/L) 134 L Potassium (3.5 - 5.1 mmol/L) 4.6 Chloride (98 - 107 mmol/L) 101 Carbon Dioxide (22 - 30 mmol/L) 22 Anion Gap (5 - 16) 11 BUN (9 - 20 mg/dL) 21 H Creatinine (0.7 - 1.2 mg/dL) 1.4 H Estimated GFR (>60 ml/min) 49 L BUN/Creatinine Ratio (7 - 25 %) 15.0 Glucose (65 - 99 mg/dL) 210 H Lactic Acid (0.7 - 2.1 mmol/L) 2.1 Calcium (8.4 - 10.2 mg/dL) 9.3 Total Bilirubin (0.2 - 1.3 mg/dL) 0.7 AST (17 - 59 U/L) 22 ALT (21 - 72 U/L) 25 Alkaline Phosphatase (< 127 U/L) 65 Total Protein (6.3 - 8.2 g/dL) 7.2 Albumin (3.5 - 5.0 g/dL) 4.1 Globulin (1.9 - 4.2 gm/dL) 3.1 Albumin/Globulin Ratio (1.1 - 2.2 %) 1.3 Hematology CBC w Diff MAN DIFF ORDERED WBC (4.8 - 10.8 /CUMM) 19.3 H RBC (4.70 - 6.10 /CUMM) 4.29 L Hgb (14.0 - 18.0 G/DL) 12.5 L Hct (42 - 52 %) 37.2 L MCV (80.0 - 94.0 FL) 86.6 MCH (27.0 - 31.0 PG) 29.2 RDW (11.5 - 14.5 %) 14.5 Plt Count (130 - 400 /CUMM) 223 MPV (7.4 - 10.4 FL) 7.9 Gran % (42.2 - 75.2 %) 81.7 H Lymphocytes % (20.5 - 51.1 %) 12.3 L Monocytes % (1.7 - 9.3 %) 5.4 Eosinophils % (0 - 5 %) 0 Basophils % (0.0 - 2.0 %) 0.6 Absolute Granulocytes (1.4 - 6.5 /CUMM) 15.8 H Segmented Neutrophils (42.2 - 75.2 %) 76 H Band Neutrophils (0.0 - 5.0 %) 1 Absolute Lymphocytes (1.2 - 3.4 /CUMM) 2.4 Lymphocytes (20.5 - 51.1 %) 14 L Monocytes (1.7 - 9.3 %) 9 Absolute Monocytes (0.10 - 0.60 /CUMM) 1.0 H Absolute Eosinophils (0.0 - 0.7 /CUMM) 0 Absolute Basophils (0.0 - 0.2 /CUMM) 0.1 Platelet Estimate (ADEQUATE) ADEQUATE Normocytic RBCs VERIFIED Normochromic RBCs VERIFIED PUBS MCHC (33.0 - 37.0 G/DL) 33.7 A/P: 76 y/o M with pmh sig for NIDDM, HTN, HLD, , CKD stage 3 CAD s/p stent in 2001, right leg DVT s/p IVC filter in 2005, s/p recent left ureteral stent removal by Dr. Meyers two days after receiving Gentamicin as per Dr. Meyers's note who is now admitted with sepsis likely 2/2 to UTI after ureteral stent removal. Patient admitted to med floor. Given CTX in the ER. Has Grown Proteus Mirabilus previously. Will continue CTX and follow up on cx. Urology has been consulted. Please confirm and continue home meds. Lactate nl. Insulin sliding scale for Diabetes. Gentle IV hydration. DVT Px; Hep sq. FUll code. EBER CHAPMAN MD 07/04/16 1610: Resident Review Statement Resident Statement: examined this patient, discussed with technical support intern, agreed with technical support intern, discussed with family, reviewed EMR data (avail) Other Findings: 74-year-old male with past medical history of recurrent renal stones status post ureteroscopy and lithotripsy 6 in the last year, hyperlipidemia, stents placed in 2014, osteoarthritis presents to the ED with complaints of generalized body ache and weakness with started yesterday. Patient had stents removal by Dr. Meyers on Thursday, developed severe body aches with fever and chills with a MAXIMUM TEMPERATURE of 101.7 yesterday. Patient also had dry heaving this morning. Otherwise denies abdominal pain, blood or pain while urination, diarrhea, vomiting, chest pain, shortness of breath. Please refer for vitals and labs at H&P On examination patient appeared comfortable in bed, no acute distress HEENT: Dry mucous membrane pupils equal and reactive to light neck sent cardiovascular: 3 x 6 systolic murmur present in the parasternal area radiating to the neck, regular heart sounds Respiratory: Bilateral breath since equal Abdomen: Soft, nontender, bowel since present, no CVA tenderness extended extremities: No pedal edema bilateral pedal pulses palpable Assessment and plan 1. Sepsis secondary to questionable urology origin given recent stent removal: Patient was started on ceftriaxone in the ED which we will continue. Previous microbiology cultures revealed and ceftriaxone appears to be reasonable antibiotic to start. Blood cultures and urine cultures are pending. Was evaluated by urology no further recommendation. We will start him on IV fluids. Pain control with IV morphine as needed. 2. CAD/stents we will continue his aspirin/statinsbeta corrie 3. Diabetes mellitus: Will hold off his by mouth medications and start him on NovoLog sliding scale given his sepsis. Once resolved week and resume his by mouth medications. A KI: Most likely due to prerenal.. Phenol been conclusive as patient has already received normal saline. We will recheck BEP in a.m. If no improvement will consider further testing. Continue rest of his home medications. Full CODE STATUS Diabetic diet DVT prophylaxis subcutaneous heparin.
--- NOTE | 2016-07-04 13:48 | NUR ---
HOUSE STAFF INTO EVAL
--- NOTE | 2016-07-04 15:02 | NUR ---
PT RESTING, DENIES COMPLAINTS. STATES HE IS STARTING TO HAVE BACK PAIN AGAIN. INFORMED HOUSE STAFF SHOULD ORDER PAIN MEDS PRN AND THEY CAN BE GIVEN ONCE ORDERED. VERBALIZES UNDERSTANDING OF SAME.
--- NOTE | 2016-07-04 15:12 | NUR ---
REPORT GIVEN TO DEEPALI ENAMORADO
[2016-07-04] MEDS ORDERED: TOPROL XL50 M1 PO (15:26)
[2016-07-04] MEDS ORDERED: TAMSULOSIN HCL0.4 M1 PO (15:29)
--- NOTE | 2016-07-04 16:03 | NUR ---
PT IS GOING TO
--- NOTE | 2016-07-04 16:25 | NUR ---
PT MEDICATED DIIRECTED WITH 2 MG MORPHINE IV FOR 7/10 BACK PAIN.
--- NOTE | 2016-07-04 17:19 | NUR ---
PT ADMITTED TO ROOM # 209-1. ORAL REPORT GIVEN TO CHIVO ABDUL ALL V.S.S. CLINICAL STATUS UNCHANGED. PT READY FOR TRANSFER
--- NOTE | 2016-07-04 17:29 | NUR ---
DISTRIBUTION CALLED TO TRANSFER PT
[2016-07-04 18:19] VITALS: BP 118/74
--- NOTE | 2016-07-04 20:47 | NUR ---
LATE ENTRY: PATIENT ARRIVED TO FLOOR AT 1750 FROM ER, DX SEPSIS D/T UTI VS 99.6 95 20 118/74 92% ROOM AIR A&O, LCTA, TRACE EDEMA TO BLE INDEPENDENT, USES RW AT HOME AT TIMES COULD NOT AMBULATE FOR US FROM STRETCHER TO BED BECAUSE OF PAIN TO HIPS AND KNEES, FALL PRECAUTIONS IN PLACE. PT USES URINAL. IV # 20 TO RAC WITH NS @ 75 ML/HR RUNNING ORIENTED TO ROOM AND CALL VEGA. CONTINUE TO MONITOR.
--- NOTE | 2016-07-04 20:49 | NUR ---
SPOKE WITH DR CHAVEZ REGARDING ALPS/AES ORDER- EXPLAINED HOW ORDER S/B ENTERED WHEN ONLY ALPS ARE NEEDED, HE IS LOOKING INTO THIS.
[2016-07-04 23:11] VITALS: BP 99/62
[2016-07-05 02:10] VITALS: BP 135/75
[2016-07-05 07:31] VITALS: BP 116/72
--- NOTE | 2016-07-05 08:02 | PN- Housestaff ---
TRAVIS HAMEED,[facility] 07/05/16 0802: Subjective Follow-up For: Sepsis 2/2 UTI Subjective: Mr. Martinez was seen and examined this morning. He is resting comfortably in bed. He reports no issues overnight. Patient does endorse back pain. Pain is rated at a 7 out of 10 in severity. This is due to a chronic condition. He denies any dysuria, frequency, urinary hesitation, or foul-smelling urine. The patient does state that generalize rigors which brought him in to the OR has no longer been experienced. He is tolerating by mouth intake well. He is able to ambulate. My Juan denies any fever, chills, nausea, vomiting. Review of Systems Constitutional: Reports: see HPI. Objective Last 24 Hrs of Vital Signs/I&O Vital Signs Date Time Temp Pulse Resp B/P Pulse O2 O2 Flow FiO2 Ox Delivery Rate 07/05 1406 98.0 80 20 132/68 96 Room Air 07/05 0940 97.6 92 18 116/72 07/05 0940 97.6 92 18 116/72 07/05 0939 97.6 92 18 116/72 07/05 0731 97.6 92 18 116/72 94 Room Air 07/05 0210 83 135/75 94 Room Air 07/04 2311 98.1 88 18 99/62 92 Room Air 07/04 1819 92 Room Air 07/04 1819 99.6 95 20 118/74 92 Room Air 07/04 1717 94 Room Air 07/04 1645 99.2 94 18 142/65 94 Room Air Intake & Output 07/05 1600 07/05 0800 07/05 0000 Intake Total 800 520 975 Output Total 1150 1400 400 Balance -350 -880 575 Intake, IV 400 375 Intake, Oral 800 120 600 Output, Urine 1150 1400 400 Patient 131.542 kg Weight Physical Exam General Appearance: Alert, Oriented X3, Cooperative Cardiovascular: Regular Rate, Normal S1, Normal S2 Lungs: Clear to Auscultation, Normal Air Movement Abdomen: Normal Bowel Sounds, Soft, No Tenderness Neurological: Normal Gait, Normal Speech Extremities: No Clubbing, No Cyanosis, No Edema Current Medications: Current Medications Sig/Lux Start time Last Medication Dose Route Stop Time Status Admin Acetaminophen 650 MG Q8P PRN 07/04 1530 AC PO Aspirin 0 .STK-MED ONE 07/04 1610 DC PO Aspirin 325 MG DAILY 07/04 1525 AC 07/05 PO 0940 Ceftriaxone Sodium 1,000 MG Q24 07/05 1000 DC 07/05 IV 0940 Heparin Sodium 0 .STK-MED ONE 07/04 1609 DC (Porcine) .ROUTE Heparin Sodium 5,000 UNIT Q8 07/04 1517 AC 07/05 (Porcine) SC 1307 Insulin Aspart 0 TIDAC 07/04 1700 AC 07/05 SC 1209 Lisinopril 5 MG DAILY 07/05 1000 AC 07/05 PO 0940 Metoprolol Succinate 50 MG DAILY 07/05 1000 AC 07/05 PO 0939 Morphine Sulfate 0 .STK-MED ONE 07/04 1609 DC .ROUTE Morphine Sulfate 2 MG Q6P PRN 07/04 1530 DC 07/05 IV 0939 Nicotinic Acid 500 MG WITH MEALS 07/04 1700 AC 07/05 PO 1209 Omeprazole 40 MG DAILY AC 07/05 0700 AC 07/05 PO 0546 Oxycodone HCl 10 MG BID 07/05 2200 DC PO Oxycodone HCl 10 MG Q12 PRN 07/05 1400 AC PO Oxycodone/ 1 TAB Q8P PRN 07/04 1530 DC 07/05 Acetaminophen PO 0546 Patient Medication 1 UNIT 1000 07/05 1000 DC 07/05 Teaching ED 07/05 1001 0941 Patient Medication 1 UNIT 1000 07/05 1000 DC 07/05 Teaching ED 07/05 1001 0941 Patient Medication 1 UNIT 1000 07/05 1000 DC 07/05 Teaching ED 07/05 1001 0941 Patient Medication 1 UNIT 0700 07/05 0700 HI 07/05 Teaching ED 07/05 0701 0941 Patient Medication 1 UNIT 2200 07/04 2200 DC 07/04 Teaching ED 07/04 2201 2103 Patient Medication 1 UNIT ONE NR 07/04 1545 HI Teaching ED 07/04 2145 Patient Medication 1 UNIT ONE NR 07/04 1545 HI Teaching ED 07/04 2145 Pravastatin Sodium 20 MG QPM 07/04 2200 AC 07/04 PO 2102 Pregabalin 75 MG BID 07/04 2200 AC 07/05 PO 0942 Ropinirole HCl 1 MG QPM PRN 07/04 1545 AC PO Sodium Chloride 1,000 ML Q13H 07/04 1530 DC 07/04 IV 07/05 0429 1624 Tamsulosin HCl 0.4 MG DAILY 07/05 1000 AC 07/05 PO 0940 Last 24 Hrs of Lab/Quinn Results Last 24 Hrs of Labs/Mics: Laboratory Tests 07/05/16 0650: Anion Gap 9, Estimated GFR 59 L, BUN/Creatinine Ratio 15.8, CBC w Diff NO MAN DIFF REQ, RBC 4.06 L, MCV 88.2, MCH 29.0, RDW 14.7 H, MPV 8.1, Gran % 65.6, Lymphocytes % 21.7, Monocytes % 10.2 H, Eosinophils % 2.3, Basophils % 0.2, Absolute Granulocytes 7.9 H, Absolute Lymphocytes 2.6, Absolute Monocytes 1.2 H, Absolute Eosinophils 0.3, Absolute Basophils 0, PUBS MCHC 32.9 L Assessment/Plan Assessment: This is a 76-year-old gentleman with past medical history of multiple stones in the past was presented on 07/04/2016 with sepsis status post urinary tract infection. UTI post stent removal We'll admit the patient to general med and monitor the patient on antibiotics IV ceftriaxone 1000 mg every 24. Owing to a negative culture we will discontinue the patient's antibiotics and follow him off antibiotics the next 24 hours. Blood cultures are pending. For pain control we will administer morphine 2 mg--> Roxicodone 10 mg twice a day. We will attempt to strain urine and look for any fragments that may be passing. A subsequent analysis of the type of stone might be helpful in understanding why this patient is having recurrent stones in the last 12 months. Nutritional consult can be recommended on 07/07/2016. If symptoms continue consider noncontrast helical CT. Alpha corrie to promote urethral relaxation. Patient already had a consult from urology in ED. Encourage increase fluid intake maintain target of greater than 2 L per day for urinary output to increase 2 L per day. Criteria: QSofa score at the time of admission was less than two. Hx of DM Begin the patient on Novolog Sliding scale: on admission: 228 Acuchecks: Q4. Goal blood sugar remains< 200 If sugars are uncontrollable,consider endocrinology consultation. HBA1C for penitentiary glycemic control. RIA Cr on admission was 1.4. Likely due to decreased PO Intake/dehydration. Repeat BEP in AM. Cr: 1.2 Constipation Bowel Regimen: Senna PRN History of CAD Continue BBlocker 50 mg Daily. DVT Prophylaxis: Sub Q Heparin Diet: Consistent Carbohydrate Diet Code: Full Code Problem List: 1. HLD (hyperlipidemia) 2. Sepsis secondary to UTI 3. Urinary tract infection 4. HTN (hypertension) Pain Ratin Pain Location: Back - Thoracic area Pain Goal: Remain pain free Pain Plan: Oxycodone 10 mg Tomorrow's Labs & Rationales: CBC: Monitor WBC in the setting of an acute infection. MALCOM HAMEED,STEFANY 07/05/16 1059: Attending MD Review Statement Attending Statement Attending MD Statement: examined this patient, discuss w/resident/PA/HEDIS ABSTRACTOR, agreed w/resident/PA/HEDIS ABSTRACTOR, discussed with family, discussed with nursing Attending Assessment/Plan: Patient seen and examined. Plan of care discussed with the medical team and the patient. Available lab work and radiology test reports were reviewed. Patient feels well but continues to complain of back pain which is somewhat better than yesterday. He has been afebrile and denies any fever or chills. His vital signs stable. Abdomen is obese soft nontender. Her chest exam is clear he is currently awake alert and oriented. WBC count has decreased 12.1. Chemistry labs are within normal limits. Urine culture is negative so far. Blood cultures are pending. Ultrasound renal showed small residual left upper renal pole calculus is suspected. There is no hydronephrosis on today's exam. Assessment plan * Removal of ureteral stent * Questionable UTI- patient did have elevated WBC count and pain however no fever. Urine cultures no negative. Patient had received gentamicin intraoperatively and he has been on ceftriaxone since then. At this point I will stop ceftriaxone given his urine cultures negative. We will watch him off antibiotic. If he continues to do well we will discharge home tomorrow. * Out of bed and ambulate
[2016-07-05 08:56] LABS: ABSOLUTE BASOPHIL COUNT 0 /CUMM (0.0-0.2); ABSOLUTE EOSINOPHIL COUNT 0.3 /CUMM (0.0-0.7); ABSOLUTE GRANULOCYTE CT 7.9 /CUMM (1.4-6.5); ABSOLUTE LYMPH COUNT 2.6 /CUMM (1.2-3.4); ABSOLUTE MONOCYTE COUNT 1.2 /CUMM (0.10-0.60); BASOPHIL % 0.2 % (0.0-2.0); EOSINOPHIL % 2.3 % (0-5); GRANULOCYTE % 65.6 % (42.2-75.2); HEMATOCRIT 35.8 % (42-52); MEAN CORPUSCULAR HGB CONC 32.9 G/DL (33.0-37.0); MEAN CORPUSCULAR VOLUME 88.2 FL (80.0-94.0); MEAN PLATELET VOLUME 8.1 FL (7.4-10.4); PLATELET COUNT 155 /CUMM (130-400); RBC DISTRIBUTION WIDTH 14.7 % (11.5-14.5); RED BLOOD CELL CT 4.06 /CUMM (4.70-6.10); WHITE BLOOD CELL COUNT 12.1 /CUMM (4.8-10.8)
[2016-07-05 14:06] VITALS: BP 132/68
--- NOTE | 2016-07-05 21:59 | Patient Discharge Instructions ---
Discharge Instructions General Discharge Information You were seen/treated for: UTI Watch for these problems: Fever, nausea, vomiting, chills, weakness, increased generalized edema. Palpitations. Chest pain. Shortness of breath. If you have any adverse reactions from any of the medications prescribed please inform your primary care physician and you may be required to come back to the emergency department. Thank you for allowing us to be part of your care. Special Instructions: Please follow up with your PCP in one week. Please inform your PCP about the medication changes we have made. Please follow up with the urologist in one week. We have provided you with a referral for 07/10/2016. Diet Continue normal diet: Yes Activity Full Activity/No Limits: No Activity Self Limited: Yes (As Tolerated) Acute Coronary Syndrome Inclusion Criteria At DC or during hospital stay patient has or had the following: ACS DIAGNOSIS No Discharge Core Measures Meds if any: Prescribed or Continued at Discharge Meds if any: NOT Prescribed or Continued at Discharge Congestive Heart Failure Inclusion Criteria At DC or during hospital stay patient has or had the following: CHF DIAGNOSIS No Discharge Core Measures Meds if any: Prescribed or Continued at Discharge Meds if any: NOT Prescribed or Continued at Discharge Cerebrovascular accident Inclusion Criteria At DC or during hospital stay patient has or had the following: CVA/TIA Diagnosis No Discharge Core Measures Meds if any: Prescribed or Continued at Discharge Meds if any: NOT Prescribed or Continued at Discharge Venous thromboembolism Inclusion Criteria VTE Diagnosis No VTE Type NONE VTE Confirmed by (Test) NONE Discharge Core Measures - Per Current guidelines, there needs to be overlap - treatment for the first 5 days of Warfarin therapy. - If discharged on Warfarin prior to 5 days of - overlap therapy, the patient will need to be - assessed for post discharge needs including - *Post discharge parental anticoagulation - *Warfarin and/or parental anticoagulation education - *Follow up date to check INR post discharge At least 5 days overlap therapy as Inpatient No Meds if any: Prescribed or Continued at Discharge Note: Overlap Therapy is Warfarin and Anticoagulant Meds if any: NOT Prescribed or Continued at Discharge
[2016-07-05 22:20] VITALS: BP 107/57
--- NOTE | 2016-07-05 23:10 | NUR ---
ALERT AND ORIENTED X 3. VITAL SIGNS STABLE. DENIES CHEST PAIN. + PULSES MEDICATION GIVEN FOR PAIN. INDEP WITH SUPERVISION. USES RW. PATIENT AMBULATED 50FT. PATIENT RESTING AT THIST CAITLIN. WILL CONTINUE TO MONITOR
[2016-07-06 06:52] VITALS: BP 130/79
[2016-07-06 08:14] LABS: ABSOLUTE BASOPHIL COUNT 0 /CUMM (0.0-0.2); ABSOLUTE EOSINOPHIL COUNT 0.4 /CUMM (0.0-0.7); ABSOLUTE GRANULOCYTE CT 6.4 /CUMM (1.4-6.5); ABSOLUTE LYMPH COUNT 2.8 /CUMM (1.2-3.4); BASOPHIL % 0.2 % (0.0-2.0); EOSINOPHIL % 3.9 % (0-5); GRANULOCYTE % 60.3 % (42.2-75.2); HEMATOCRIT 35.3 % (42-52); MEAN CORPUSCULAR HGB 28.9 PG (27.0-31.0); MEAN CORPUSCULAR HGB CONC 32.9 G/DL (33.0-37.0); MEAN CORPUSCULAR VOLUME 87.8 FL (80.0-94.0); MEAN PLATELET VOLUME 8.3 FL (7.4-10.4); PLATELET COUNT 210 /CUMM (130-400); RBC DISTRIBUTION WIDTH 14.7 % (11.5-14.5); RED BLOOD CELL CT 4.02 /CUMM (4.70-6.10); WHITE BLOOD CELL COUNT 10.6 /CUMM (4.8-10.8)
--- NOTE | 2016-07-06 08:41 | PN- Housestaff ---
SHERI HAMEED,AMANDA 07/06/16 0840: Subjective Follow-up For: sepsis of urological origin Subjective: I saw and examined the patient today morning He is concerned about back pain, wants to walk around. otherwise his urinary symptoms got lot better. No overnight issues. PT consulted Review of Systems Constitutional: Reports: see HPI. Comments: ROS negative except the above. Objective Last 24 Hrs of Vital Signs/I&O Vital Signs Date Time Temp Pulse Resp B/P Pulse O2 O2 Flow FiO2 Ox Delivery Rate 07/06 0652 99.2 90 20 130/79 95 Room Air 07/05 2220 98.3 91 20 107/57 94 Room Air 07/05 1406 98.0 80 20 132/68 96 Room Air 07/05 0940 97.6 92 18 116/72 07/05 0940 97.6 92 18 116/72 07/05 0939 97.6 92 18 /72 Intake & Output 07/06 1600 07/06 0800 07/06 0000 Intake Total 700 Output Total 350 1200 600 Balance -350 -1200 100 Intake, Oral 700 Output, Urine 350 1200 600 Physical Exam General Appearance: Alert, Oriented X3, Cooperative, No Acute Distress Skin: No Rashes, No Breakdown HEENT: Atraumatic, PERRLA, EOMI Neck: Supple Cardiovascular: Normal S1, Normal S2, prominent pansystolic murmur present Lungs: Clear to Auscultation, Normal Air Movement Abdomen: Normal Bowel Sounds, No Tenderness, distended Neurological: Normal Tone, Sensation Intact, Cranial Nerves 3-12 NL Extremities: No Clubbing, No Cyanosis, 2+ edema present bilaterally Vascular: Normal Pulses, Pulses Symmetrical Current Medications: Current Medications Sig/Lux Start time Last Medication Dose Route Stop Time Status Admin Acetaminophen 650 MG Q8P PRN 07/04 1530 AC PO Aspirin 325 MG DAILY 07/04 1525 AC 07/05 PO 0940 Bisacodyl 5 MG DAILY 07/05 1518 AC 07/05 PO 2119 Ceftriaxone Sodium 1,000 MG Q24 07/05 1000 DC 07/05 IV 0940 Diclofenac Sodium 1 SHEILA 4 TIMES/DAY PRN 07/05 1930 AC 07/06 TOP 0458 Heparin Sodium 5,000 UNIT Q8 07/04 1517 AC 07/06 (Porcine) SC 0458 Insulin Aspart 0 TIDAC 07/04 1700 AC 07/06 SC 0758 Lisinopril 5 MG DAILY 07/05 1000 AC 07/05 PO 0940 Metoprolol Succinate 50 MG DAILY 07/05 1000 AC 07/05 PO 0939 Morphine Sulfate 2 MG Q6P PRN 07/04 1530 DC 07/05 IV 0939 Nicotinic Acid 500 MG WITH MEALS 07/04 1700 AC 07/06 PO 0759 Omeprazole 40 MG DAILY AC 07/05 0700 AC 07/06 PO 0457 Oxycodone HCl 10 MG BID 07/05 2200 DC PO Oxycodone HCl 10 MG Q12 PRN 07/05 1400 AC 07/06 PO 0457 Oxycodone/ 1 TAB Q8P PRN 07/04 1530 DC 07/05 Acetaminophen PO 0546 Patient Medication 1 UNIT 1000 07/05 1000 DC 07/05 Teaching ED 07/05 1001 0941 Patient Medication 1 UNIT 1000 07/05 1000 DC 07/05 Teaching ED 07/05 1001 0941 Patient Medication 1 UNIT 1000 07/05 1000 DC 07/05 Teaching ED 07/05 1001 0941 Pravastatin Sodium 20 MG QPM 07/04 2200 AC 07/05 PO 2120 Pregabalin 75 MG BID 07/04 2200 AC 07/05 PO 2120 Ropinirole HCl 1 MG QPM PRN 07/04 1545 AC PO Tamsulosin HCl 0.4 MG DAILY 07/05 1000 AC 07/05 PO 0940 Last 24 Hrs of Lab/Quinn Results Last 24 Hrs of Labs/Mics: Laboratory Tests 07/06/16 0605: CBC w Diff NO MAN DIFF REQ, RBC 4.02 L, MCV 87.8, MCH 28.9, RDW 14.7 H, MPV 8.3, Gran % 60.3, Lymphocytes % 26.4, Monocytes % 9.2, Eosinophils % 3.9, Basophils % 0.2, Absolute Granulocytes 6.4, Absolute Lymphocytes 2.8, Absolute Monocytes 1.0 H, Absolute Eosinophils 0.4, Absolute Basophils 0, PUBS MCHC 32.9 L Lines/Diet/Fluids Lines: peripheral lines Assessment/Plan Assessment: This is a 76-year-old gentleman with past medical history of multiple stones in the past was presented on 07/04/2016 with sepsis status post urinary tract infection. UTI post stent removal We'll admit the patient to general med and monitor the patient on antibiotics IV ceftriaxone 1000 mg every 24. Owing to a negative culture we will discontinue the patient's antibiotics and follow him off antibiotics the next 24 hours. Blood cultures are pending. For pain control we will administer morphine 2 mg--> Roxicodone 10 mg twice a day. We will attempt to strain urine and look for any fragments that may be passing. A subsequent analysis of the type of stone might be helpful in understanding why this patient is having recurrent stones in the last 12 months. Nutritional consult can be recommended on 07/07/2016. If symptoms continue consider noncontrast helical CT. Alpha corrie to promote urethral relaxation. Patient already had a consult from urology in ED. Encourage increase fluid intake maintain target of greater than 2 L per day for urinary output to increase 2 L per day. Criteria: QSofa score at the time of admission was less than two. Stable for discharge today. Hx of DM Begin the patient on Novolog Sliding scale: on admission: 228 Acuchecks: Q4. Goal blood sugar remains< 200 If sugars are uncontrollable,consider endocrinology consultation. HBA1C for continuous churn buttermaker glycemic control. Continued his home medications glimeperide and janumet inj at discharge. RIA Cr on admission was 1.4. Likely due to decreased PO Intake/dehydration. Repeat BEP yesterday. Cr: 1.2 Constipation Bowel Regimen: Senna PRN History of CAD Continue BBlocker 50 mg Daily. DVT Prophylaxis: Sub Q Heparin Diet: Consistent Carbohydrate Diet Code: Full Code Problem List: 1. HLD (hyperlipidemia) 2. HTN (hypertension) 3. Urinary tract infection 4. Sepsis secondary to UTI Pain Ratin Pain Location: back pain Pain Goal: Pain 4 or less Pain Plan: tyelonol prn Tomorrow's Labs & Rationales: none MALCOM HAMEED,STEFANY 07/06/16 1103: Attending MD Review Statement Attending Statement Attending Assessment/Plan: Attending MD Statement: examined this patient, discuss w/resident/PA/HADOOP CONSULTANT, agreed w/resident/PA/HADOOP CONSULTANT, discussed with family, discussed with nursing Attending Assessment/Plan: Patient seen and examined. Plan of care discussed with the medical team and the patient. Available lab work and radiology test reports were reviewed. Patient feels well but continues to complain of back pain which is somewhat better than yesterday. He has been afebrile and denies any fever or chills. His MAXIMUM TEMPERATURE was 99.2. His other vital signs are stable. Abdomen is obese soft nontender. Her chest exam is clear he is currently awake alert and oriented. WBC count has decreased 10.6. Urine culture is negative so far. Blood cultures are negative. Ultrasound renal showed small residual left upper renal pole calculus is suspected. There is no hydronephrosis. Assessment plan * Removal of ureteral stent * Questionable UTI- patient did have elevated WBC count and pain however no fever. Urine and blood cultures are negative. Patient had received gentamicin intraoperatively and he has received ceftriaxone for 1 day. Ceftriaxone was stopped yesterday. Patient currently stable off antibiotics. * Out of bed and ambulate * The patient can ambulate he can be discharged home today * Patient was instructed to return to hospital if he has fever chills or increased pain
[2016-07-06 12:00] VITALS: BP 128/78
--- NOTE | 2016-07-06 15:58 | Discharge Summary ---
Visit Information Visit Dates Admission Date: 07/04/16 Discharge Date: 07/06/16 Hospital Course Course Attending Physician: GULSHAN DUMONT MD Primary Care Physician: INDIGO ALFARO MD [facility] Course: Mr Martinez is a 76-year-old gentleman with past medical history of NIDDM, HTN, HLD , CAD s/p stent in 2001, right leg DVT s/p IVC filter in 2005, multiple renal stones (6 this year) who presented to the emergency department at [facility] on 07/04/2016 complaining of weakness, pain and generalized malaise. He was admitted onto our service and below is a summary of the care he received under us. #Sepsis likely Urological in Origin Prior to admission, Mr Martinez has recently undergone a removal or a urinary stent early on in the week(07/02/2016). The patient was admitted and initially started on Ceftriaxone. He did have an elevated WBC count (19.3), which subsequently trended down on day two of admission. For pain, the patient was initially given opioid medications, before resuming his home medications of Roxicodone. An Alpha corrie was also continued. Urine cultures on day two showed no growth and the patient was discharged with no further complications. #History of Diabetes Mellitus The patient was started on Novolog Sliding scale. His blood sugars on admission was on admission: 228. His sugar range was well controlled throughout his admission. #Acute Kidney Injury At the time of admission, the patient had a Creatinine level of 1.4. He was started on IV fluids. On day two of admission a repeat check of this level was 1.2. #History of CAD Mr Martinez was continued on Metoprolol Succinate 50 mg Daily. Allergies: Coded Allergies: fentanyl (GI UPSET 06/22/15) Uncoded Allergies: med used during stress test (UNKNOWN 01/14/16) Pertinent Lab Results: SERVICE DATE: 07/04/16 EXAM TYPE: US - US-RENAL/KIDNEY EXAMINATION: US RETROPERITONEAL COMPLETE (RENAL) CLINICAL INFORMATION: Left-sided back pain, history of urolithiasis and hydronephrosis. COMPARISON: CT dated 05/14/2016. TECHNIQUE: Real-time imaging of the kidneys and bladder. Selected static images provided for interpretation. Exam is limited due to patient body habitus, especially the upper poles. FINDINGS: RIGHT KIDNEY: 10.6 x 5.2 x 5.4 cm (SAG x AP x TRV). The visualized right kidney is normal in size, contour, and echogenicity. Renal cortical thickness is normal. No calculi or focal parenchymal lesions. No hydronephrosis. LEFT KIDNEY: 11.2 x 6.0 x 6.3 cm (SAG x AP x TRV). There is a 0.7 cm maximal dimension echogenic focus in the upper pole of the right kidney consistent with a residual calculus. The kidney is normal in size, contour, and echogenicity. Renal cortical thickness is normal. There is no hydronephrosis. BLADDER: Moderately fluid-filled containing 153 mL. A left ureteral jet is identified, the right ureteral jet is not seen. IMPRESSION: Limited exam, small residual left upper renal pole calculus is suspected. There is no hydronephrosis on today's exam. DICTATED BY: LUCIANO RAMÍREZ MD Disposition Summary Disposition Principal Diagnosis: Sepsis likely Urological in Origin Additional Diagnosis: DM CAD RIA Discharge Disposition: home or self care Discharge Instructions General Discharge Information Code Status: Full Code Patient's Diet: Consitent Carbohydrate Patient's Activity: As Tolerated Follow-Up Instructions/Appts: Please follow up with your PCP in one week. Please inform your PCP about the medication changes we have made. Please follow up with the urologist in one week. We have provided you with a referral for 07/10/2016. Medications at Discharge Discharge Medications: Continue taking these medications: Loratadine (Claritin) 10 MG TAB 10 Milligram ORAL DAILY Qty = 30 Comments: Last Taken: 04/03/15 Time: 0700 Pantoprazole Sodium (Protonix) 40 MG TAB 40 Milligram ORAL DAILY Qty = 90 Comments: Last Taken: 04/02/15 Time: 1800 Vitamin B [id number] (B-Complex) 1 TAB TAB 1 Tablet ORAL DAILY Comments: Last Taken: 04/03/15 Time: 0700 Pregabalin (Lyrica) 75 MG CAP 1 Capsule ORAL TWICE DAILY Qty = 60 Comments: Last Taken: 04/03/15 Time: 0700 Pravastatin Sodium (Pravachol) 20 MG TABLET 1 Tablet ORAL Every night Comments: Last Taken: 07/05/16 Time: 9 PM Lisinopril (Prinivil) 5 MG TABLET 1 Tablet ORAL DAILY Comments: Last Taken: 07/06/16 Time: 9 AM Glimepiride (Amaryl) 4 MG TABLET 1 Tablet ORAL DAILY Qty = 90 Comments: NOT GIVEN AT HOSPITAL Sitagliptin Phos/Metformin HCl (Janumet 50-1,000 MG Tablet) 1 EACH TABLET 1 Tablet ORAL TWICE DAILY Qty = 180 Comments: NOT GIVEN AT HOSPITAL Aspirin (Aspirin*) 325 MG TABLET 1 Tablet ORAL DAILY Comments: Last Taken: 07/06/16 Time: 9 AM Niacin (Niaspan) 500 MG TAB.ER.24H 1 Tablet ORAL Every night Qty = 90 Comments: Last Taken: 07/06/16 TIME: 12PM Ropinirole HCl (Requip) 1 MG TABLET 1 Tablet ORAL Every night Comments: NOT GIVEN AT HOSPITAL Multivitamin (Multi-Day Vitamins) 1 EACH TABLET 1 Tablet ORAL DAILY Comments: Last Taken: NOT GIVEN AT HOSPITAL Time: Oxycodone HCl (Oxycodone HCl) 10 MG TABLET 1 Tablet ORAL TWICE DAILY as needed for pain Comments: Last Taken: 07/06/16 Time: 5 AM Exenatide Microspheres (Bydureon Pen) 2 MG/0.65 ML PEN.INJCTR 1 Inj Inject into fatty tissue ONCE A WEEK Comments: NOT GIVEN AT HOSPITAL Metoprolol Succ XL (Toprol Xl) 50 MG TAB 1 Tablet ORAL DAILY Comments: Last Taken: 07/06/16 Time: 9 AM Tamsulosin HCl (Tamsulosin HCl) 0.4 MG CAP.ER.24H 0.5 Capsule ORAL DAILY Comments: Last Taken: 07/06/16 Time: 12 PM Copies To: ELENITA FRASER MD, MD,INDIGO Rayo Attending MD Review Statement Other Findings: This patient was discharged by Dr. Richardson.
[2016-09-01] MEDS ORDERED: LYRICA75 M1 PO (14:33)
[2016-09-01] MEDS ORDERED: METFORMIN HCL1000 M2 PO (14:34)
[2016-09-01] MEDS ORDERED: FLONASE ALLERG9.9 ML (14:34)
[2016-09-01] MEDS ORDERED: ZOLPIDEM TARTRAT5 M1 PO (14:35)
== END 2016-07-06 13:00 | DRG 694 ==
LOC: ENRESERVTM → ENRESERVDT → ERH 08:29 → ENPENDDIS 14:12 → ERHI 14:12 → 2NB 17:57
PROVIDERS: Internal Medicine; Physician Assistant; Student in an Organized Health Care Education/Training Program; ADMIT Hospitalist
DX: N20.0 Calculus of kidney (principal); E11.22 Type 2 diabetes mellitus with diabetic chronic kidney disease; N18.3 Chronic kidney disease, stage 3 (moderate); Z68.41 Body mass index [BMI] 40.0-44.9, adult; E78.5 Hyperlipidemia, unspecified; Z87.891 Personal history of nicotine dependence; I25.10 Atherosclerotic heart disease of native coronary artery without angina pectoris; K21.9 Gastro-esophageal reflux disease without esophagitis; I12.9 Hypertensive chronic kidney disease with stage 1 through stage 4 chronic kidney disease, or unspecified chronic kidney disease; E66.9 Obesity, unspecified; Z87.442 Personal history of urinary calculi; Z86.718 Personal history of other venous thrombosis and embolism
CPT/HCPCS: 2NBSP; 36415; 76775; 81001; 82436; 87040; 87086; 87804; 87804-59; 96361; 96374; 96375; 96376; 97116-GO; 97161-GP; 99291; J0696; J1644; J2405

== ENCOUNTER 2016-09-04 01:25 | Inpatient (IN) | payer OTHER ==
[~2016-09-04] VITALS: Ht 175.3 cm; Wt 131.5 kg
[~2016-09-04 01:25] MED LIST changes: +BYDUREON P2 MG/0.65 SC; +FLONASE ALLERG9.9 ML; +LYRICA75 M1 PO; +METFORMIN HCL1000 M2 PO; +OXYCODONE HCL10 M2 PO; +TAMSULOSIN HCL0.4 M1 PO; +TOPROL XL50 M1 PO; +ZOLPIDEM TARTRAT5 M1 PO
--- NOTE | 2016-09-04 13:33 | ULTRASOUND REPORT ---
CLINICAL HISTORY: The patient is a 76-year-old man with left renal calculi, who presents to interventional radiology for placement of a percutaneous nephroureteral catheter to facilitate lithotripsy. The patient has an indwelling retrograde ureteral catheter which was placed by Dr. Meyers in the operating room this morning. PROCEDURES: 1. Left antegrade nephrostogram. 2. Placement of a left-sided wire extending from the back into the bladder through the urinary collecting system. 3. Focal ultrasound evaluation of the kidney. PHYSICIANS: Dr. Viki Wheat MONITORING: The procedure was performed with general anesthesia. MEDICATIONS: Refer to anesthesia notes for details. The patient received preoperative ciprofloxacin as per Dr. Meyers's protocol. COMPLICATIONS: None. ESTIMATED BLOOD LOSS: <5 mL. SPECIMENS: None. CONTRAST: 15 mL Optiray 320, post nephron FLUOROSCOPY TIME: 3.3 minutes. PROCEDURE NOTE: Informed consent was obtained from the patient prior to the procedure. During this process, the procedure and potential alternatives were explained along with the intended outcome and benefits. The risks of the procedure, including the possibility of an unsuccessful procedure, as well as the risk of not doing the procedure, were discussed. The patient was given the opportunity to ask questions regarding the procedure and appeared competent to make decisions. A signed consent form documenting this discussion was placed in the medical record. SITE MARKING: As part of the preprocedure verification policy, a site marking procedure was initiated. Due to the nature the procedure, the insertion site could not be predetermined thus invoking the policy of exemption to site laterality and marking. Insertion site marking was performed in the procedure room in conjunction with imaging confirmation. A time-out procedure was performed. The patient was placed prone on the fluoroscopy table. The back was prepped and draped in usual sterile fashion. After localizing an approach, the anticipated needle track was anesthetized with local lidocaine injection. Under fluoroscopic and ultrasound guidance, a 20 gauge spinal needle was advanced into the targeted calyx and position within the urinary system was confirmed with urine reflux out of the needle hub. Contrast was gently injected for antegrade nephrostogram evaluation. Next, a 0.018 in wire was advanced through the needle into the collecting system. A Grebb set was then advanced over the wire under fluoroscopic-guidance. Position was confirmed with gentle contrast injection. A 0.035 in Amplatz wire was advanced through the set sheath into the bladder. The wire was secured into position. FINDINGS: 1. Left-sided nephrolithiasis. 2. Successful placement of an Amplatz wire extending from the left flank through the kidney and urinary collecting system, coiling within the bladder. IMPRESSION: Successful placement of left-sided wire into the urinary collecting system to facilitate lithotripsy. PLAN: The patient was stable after the procedure and will be transferred to the OR for lithotripsy.
--- NOTE | 2016-09-04 13:51 | RADIOLOGY REPORT ---
EXAMINATION: FL C-ARM FLUOROSCOPIC ASSISTANCE CLINICAL INDICATION: Left ureteric stent placement. COMPARISON: None TECHNIQUE: 8 spot radiographic images were obtained at the time of the procedure. FLUOROSCOPY TIME: 48.8 seconds. FINDINGS: Multiple sequential C-arm fluoroscopic spot radiographs were obtained at the time of the left internal ureteric stent placement. Full procedural details will be dictated by Dr. Meyers. IMPRESSION: C-arm fluoroscopy assistance and multiple spot radiographs were obtained at the time of the left internal ureteric stent placement. Full procedural details will be dictated by Dr. Meyers.
--- NOTE | 2016-09-04 15:04 | Operative Report ---
MARC FRASER MD 09/04/16 1501: Operative/Inv Procedure Report Surgery Date: 09/04/16 Name of Procedure: CYSTOSCOPY-RIGHT ASHLEY BALLOON INSERTION: RIGHT PCNL WITH TRACT CREATION. NEPHROSTOMY TUBE INSERTION WITH ANTEGRADE AND RETROGRADE PYELOGRAM. LASER LITHOTRYPSY OF UPPER POLE STONE. DILATATION OF UPPER POLE INFUNDIBULUM. Pre-Operative Diagnosis: RIGHT PARTIAL STAGHORN Post-Operative Diagnosis: SAME Estimated Blood Loss: 200CC Surgeon/Risk Management Internship: MARC FRASER MD Anesthesia: general endotracheal tube Drains: 8FR RIGHT NEPHROSTOMY TUBE. Specimens: RIGTH STAGHORN Complications: NONE Operative/Procedure Note Note: The patient was taken to the operating room placed on the OR table in supine position. After adequate anesthesia and antibiotics the patient was placed lithotomy stirrups draped and prepped in usual surgical fashion, after removing the Boothe catheter. A 22 Nauruan cystoscope sheath with a 30 angle lens was inserted under direct visualization without difficulty. The bladder was noted to be free of tumor free of stone, with both ureteral orifices in orthotopic position. The left orifice was intubated with a C Ashley balloon catheter with placement confirmed on fluoroscopy. Retrograde pyelogram was performed with the balloon inflated with 3 mL resulting in good nephrogram without leakage. The contrast material was then drained and the Boothe catheter was capped. The cystoscope was removed leaving the Boothe catheter in place which was then taped to the patient's penis in order to secure it for transport to interventional radiology. Findings: strictured left upper pole infundibulum with stone in calyx-unable to dilate tract for lithotrypsy. Discharge Disposition: PACU Additional Comments: CONSULT MED. CALLED-DR. HOLLOWAY CC: MARC FRASER MD
--- NOTE | 2016-09-04 16:31 | RADIOLOGY REPORT ---
EXAMINATION: FL C-ARM FLUOROSCOPIC ASSISTANCE AT THE TIME OF LEFT-SIDED PERCUTANEOUS NEPHROLITHOTOMY AND LEFT-SIDED STENT PLACEMENT CLINICAL INDICATION: 76-year-old left renal superior polar calculus. For percutaneous nephrolithotomy and left-sided stent placement. COMPARISON: Renal ultrasound done on 07/04/2016. TECHNIQUE: Multiple spot radiographs were obtained at the time of the procedure. A total of 150 spot radiographic images were obtained at the time of the procedure. FLUOROSCOPY TIME: 10 minutes and 6 seconds. FINDINGS: Multiple fluoroscopic spot radiographs were obtained at the time of the procedure. Full procedural details will be dictated by Dr. Meeyrs. IMPRESSION: Multiple spot radiographs were obtained at the time of the left-sided percutaneous nephrolithotomy and stent placement. Full procedural details will be dictated by Dr. Meyers.
--- NOTE | 2016-09-04 17:20 | Cons- Medical ---
NANDO CABAN MD 09/04/16 1719: General Information and HPI Consulting Request Date of Consult: 09/04/16 Requested By: MARC MEYERS MD Reason for Consult: CPAP AND DM MNAGEMNET Source of Information: patient, old records Exam Limitations: no limitations History of Present Illness: This is a 76-year-old male with a past medical history of hypertension, coronary artery disease status post STENT PLACEMENT in 2005, hyperlipidemia and diabetes mellitus not on insulin-dependent, recurrent nephrolithiasis, history of DVT status post IVC filter placement with the recent staghorn calculus status post lithotripsy today under Dr. Meyers service who presented to the [facility] with same day surgery. Postoperatively medical team was consulted for medical management. The patient denies any acute complaints when I saw the patient. He looks fine he tells that he has been diagnosed with obstructive sleep apnea at [facility] 1- 2 years back but has been refusing to wear CPAP at night due to persistent claustrophobia. Allergies/Medications Allergies: Coded Allergies: fentanyl (GI UPSET 06/22/15) Uncoded Allergies: med used during stress test (UNKNOWN 01/14/16) Home Med List: Aspirin (Aspirin*) 325 MG TABLET 1 TAB PO DAILY BLOOD THINNER (Reported) Fluticasone Propionate (Flonase Allergy Relief) 50 MCG/ACTUATION SPRAY.SUSP ALLERGIES (Reported) Glimepiride (Amaryl) 4 MG TABLET 1 TAB PO DAILY DIABETES (Reported) Lisinopril (Prinivil) 5 MG TABLET 1 TAB PO DAILY BP (Reported) Loratadine (Claritin) 10 MG TAB 10 MG PO DAILY ALLERGIES (Reported) Metformin HCl (Metformin HCl ER) 1,000 MG TAB.ER.24 1 TAB PO DAILY DM II ( Reported) Metoprolol Succ XL (Toprol Xl) 50 MG TAB 1 TAB PO DAILY BLOOD PRESSURE ( Reported) Niacin (Niaspan) 500 MG TAB.ER.24H 1 TAB PO QPM CHOLESTEROL (Reported) Oxycodone HCl 10 MG TABLET 1 TAB PO TID PRN pain (Reported) Pantoprazole Sodium (Protonix) 40 MG TAB 40 MG PO DAILY GERD (Reported) Pravastatin Sodium (Pravachol) 20 MG TABLET 1 TAB PO QPM CHOLESTEROL ( Reported) Pregabalin (Lyrica) 75 MG CAP 1 CAP PO BID PAIN (Reported) Pregabalin (Lyrica) 75 MG CAPSULE 1 CAP PO BID PAIN (Reported) Ropinirole HCl (Requip) 1 MG TABLET 1 TAB PO QPM PRN RESTLESS LEG (Reported) Sitagliptin Phos/Metformin HCl (Janumet 50-1,000 MG Tablet) 1 EACH TABLET 1 TAB PO BID DIABETES (Reported) Tamsulosin HCl 0.4 MG CAP.ER.24H 0.5 CAP PO DAILY URINARY OBSTRUCTION ( Reported) Zolpidem Tartrate 5 MG TABLET 1 TAB PO QPMP PRN SLEEP (Reported) Review of Systems Review of Systems Constitutional: Reports: see HPI. EENTM: Reports: see HPI. Past History Travel History Traveled to [facility] past 21 day No Medical History Neurological: migraine EENT: NONE Cardiovascular: hypertension, hyperlipidemia, STENTS 2008 nuclear stress test normal Respiratory: NONE Gastrointestinal: diverticulitis, GERD Hepatic: NONE Renal: KIDNEY STONE Musculoskeletal: osteoarthritis Psychiatric: NONE Endocrine: diabetes Blood Disorders: DVT Cancer(s): SKIN CA GERIATRICIAN/Reproductive: NONE Surgical History Surgical History: cholecystectomy, STENTS IN HEART, TIA FILTER, KNEES Ureteral stent Family History Relations & Conditions If Any: FATHER FH: myocardial infarction FH: pancreatic cancer MOTHER FH: Parkinson's disease Psychosocial History Who Do You Live With? spouse Services at Home: None Primary Language: Togolese Functional Ability ADLs Independent: dressing. Ambulation: independent IADLs Independent: shopping. Exam & Diagnostic Data Last 24 Hrs of Vital Signs/I&O Vital Signs Date Time Temp Pulse Resp B/P B/P Pulse O2 O2 Flow FiO2 Mean Ox Delivery Rate 09/04 1130 100 09/04 1045 50 Physical Exam General Appearance: well developed/nourished, no apparent distress Head: atraumatic, normal appearance Ears, Nose, Throat: normal pharynx, normal ENT inspection Neck: normal inspection, supple Respiratory: normal breath sounds, chest non-tender Cardiovascular: regular rate/rhythm Gastrointestinal: normal bowel sounds, soft Last 24 Hrs of Labs/Quinn: Microbiology 09/04 1700 URINE ROUT: Urine Culture - RECD Assessment/Plan Assessment/Plan This is a 76-year-old male past medical history of hypertension, coronary artery disease status post stent placement, hyperlipidemia, gpx-qsilqdm-yyqgryvur diabetes mellitus, who presented to the [facility] with persistent and recurrent kidney stones status post lithotripsy. The medical team was consulted postoperatively for medical comanagement. A total postoperatively shows blood pressure 148/78 respiration rate of 18, pulse rate of 84, saturation of 94% on 2 l nc Labs shows From June 2016 normal WBC, normal hemoglobin and hematocrit EKG postoperatively not done Assessment 1. Status post lithotripsy staghorn calculus 2. History of wrc-gfryvov-vkyieurqx diabetes mellitus 3. History of obstructive sleep apnea noncompliant with CPAP 4. History of hypertension 5. History of hyperlipidemia Recommendations Aggressive postoperative incentive spirometry I spoke to the patient in length regarding the use of CPAP and being compliant with it. He is in agreement to try the CPAP in the hospital which we would order. We will switch his oral hypoglycemic to Levemir and insulin sliding scale(0.2 UNITS/KG FOR LEVEMIRI/E 10 UNITS BID) Considering the patient's low GFR and elevated creatinine with a baseline of 1.4 -1.3 we recommend discontinuing sulfonylurea in the patient's home medications Continue his all other blood pressure medications and home medications DVT prophylaxis with subcutaneous Lovenox while in the hospital Patient is full code We will follow the patient with you Problem List: 1. HLD (hyperlipidemia) 2. HTN (hypertension) 3. Diabetes mellitus Consult Acknowledgment - Thank you for your consult request. [facility] 09/04/16 2310: Assessment/Plan Consult Acknowledgment - Thank you for your consult request. Attending MD Review Statement Attending Statement Attending MD Statement: examined this patient, discuss w/resident/PA/WATCHMAKING TEACHER, agreed w/resident/PA/WATCHMAKING TEACHER, reviewed EMR data (avail)
[2016-09-04 17:45] VITALS: BP 140/70
--- NOTE | 2016-09-04 18:59 | NUR ---
PT ADMITTED TO ROOM FROM PACU AT 1745, A/OX3, ON 3LNC, VSS, PT DSG TO L SIDE COMPLTETELY SATURATED WITH BLOOD, CHEW DRAINING CLEAR PINK URINE, PER DR BRIA MORRISON TO REINFORCE DRESSING PRN, PAIN 8 OUT OF 10 AT THIS TIME, PT MEDICATED WITH PRN PAIN MED, ORIENTED TO ROOM AND CALL VEGA, WILL CONT TO MONITOR
[2016-09-04 21:07] VITALS: BP 116/68
[2016-09-04 22:34] VITALS: BP 113/77
[2016-09-05] VITALS (7 sets, daily range): BP systolic 120–132; BP diastolic 60–82
--- NOTE | 2016-09-05 07:28 | PN- Medicine Consult ---
ARSH HAMEED,NANDO 09/05/16 0728: Assessment/Plan Assessment/Plan Assessment: This is a 76-year-old pleasant gentleman who we were asked to evaluate for medical comanagement status post day 1 lithotripsy after staghorn calculus operated by Dr. Meyers. Assessment Postop day 1, patient is in moderate distress secondary to persistent flank pain and spasms. 1. History of hypertension 2. History of diabetes mellitus 3. History of obstructive sleep apnea, noncompliant with CPAP at night 4. History of recurrent kidney stones 5. History of DVT status post IVC filter not an anticoagulation 6. History of coronary artery disease status post stent placement 7. Acute on chronic kidney disease(CkD stage I) Plan: Plan The patient is in moderate distress and has on and off recurrent spasms due to residual kidney stone. We recommend the patient can be started on Flexeril 10 mg 3 times a day and will switch his IV morphine to by mouth oxycodone which the patient takes at home as well. Unfortunately no Accu-Cheks with checked overnight. Please do Accu-Cheks 3 times a day at bedtime The patient also did not receive any Levemir 10 units overnight, we recommend continue 10 units Levemir twice a day along with NovoLog sliding scale while in the hospital On discharge, the patient can be switched to oral hypoglycemics, and avoid sulfonylurea in case of worsening creatinine Patient has chronic kidney stage IV with a baseline creatinine 1.3-1.5 Patient is eating well and we can switch fluids to NS . Incentive spirometry Patient is reluctant to use CPAP at night Subjective Subjective: Patient is doing well. He does not have any specific complaints. He is awake alert and was having breakfast when the patient. Review of Systems Constitutional: Reports: see HPI. Objective Last 24 Hrs of Vital Signs/I&O Vital Signs Date Time Temp Pulse Resp B/P B/P Pulse O2 O2 Flow FiO2 Mean Ox Delivery Rate 09/05 0800 Nasal 3.0L Cannula 09/05 0634 99.5 98 20 128/70 95 Nasal 3.0L Cannula 09/05 0301 98.6 94 22 120/68 94 Nasal 3.0L Cannula 09/05 0000 94 Nasal 3.0L Cannula 09/04 2234 99.0 111 20 113/77 94 Nasal 3.0L Cannula 09/04 2107 100.4 119 20 116/68 97 Room Air 05/11 194 Nasal 4.0L Cannula 09/04 174 Nasal 3.0L Cannula 09/04 174 97.5 95 20 140/70 94 Nasal 3.0L Cannula 09/04 1130 100 09/04 1045 50 Intake & Output 09/05 1600 09/05 0800 09/05 0000 Intake Total 990 1100 Output Total 625 650 Balance 365 450 Intake, IV 750 600 Intake, Oral 240 500 Number 0 Bowel Movements Output, Urine 625 650 Patient 290 lb Weight Weight Reported by Patient Measurement Method Current Medications: Current Medications Sig/Lux Start time Last Medication Dose Route Stop Time Status Admin Aspirin 325 MG DAILY 09/05 1000 AC PO Cefazolin Sodium 2 GM Q8H 09/04 2000 AC 09/05 N/A 1 UNIT IV 09/05 2028 0416 Cefazolin Sodium 2 GM IQ8 09/04 1600 DC N/A 1 UNIT IV 09/05 1629 Ciprofloxacin 500 MG ONCE 09/04 0000 DC PO 09/04 2359 Dextrose/Sodium 1,000 ML .[id number] 09/04 151 DC 09/04 Chloride IV 2258 Docusate Sodium 100 MG DAILY NEEDED PRN 09/04 151 AC PO Fluticasone 2 SPRAY DAILY 09/05 1000 AC Propionate LINH Hydromorphone HCl 2 MG .STK-MED ONE 09/04 1529 DC IM 09/04 1530 Insulin Aspart 0 TIDAC 09/05 0800 AC SC Insulin Detemir 10 UNITS DAILY 09/05 1000 DC SC Insulin Detemir 10 UNITS BID 09/05 1000 AC SC Ketorolac 30 MG ONCE ONE 09/04 1930 DC 09/04 Tromethamine IV 09/04 Lidocaine 0 .STK-MED ONE 09/04 1009 DC .ROUTE Metoprolol Succinate 50 MG DAILY 09/05 1000 AC PO Morphine Sulfate 4 MG Q2P PRN 09/04 1515 DC 09/05 IV 0713 Nicotinic Acid 500 MG WITH MEALS 09/05 0800 AC PO Omeprazole 40 MG DAILY AC 09/05 0700 AC 09/05 PO 0559 Ondansetron HCl 4 MG ONCE ONE 09/04 1915 DC IV 09/04 191 Oxycodone HCl 10 MG TID 09/05 1000 AC PO Zolpidem Tartrate 5 MG AT BEDTIME NEED.. 05/11 1515 AC 09/04 PO 2302 Results Last 24 Hrs Lab/Quinn Results: Laboratory Tests 09/05/16 0642: Estimated GFR 46 L, BUN/Creatinine Ratio 21.3, CBC w Diff NO MAN DIFF REQ, RBC 4.59 L, MCV 87.9, MCH 29.5, RDW 14.7 H, MPV 8.7, Gran % 81.0 H, Lymphocytes % 9.2 L, Monocytes % 9.1, Eosinophils % 0.7, Basophils % 0 L, Absolute Granulocytes 12.4 H, Absolute Lymphocytes 1.4, Absolute Monocytes 1.4 H, Absolute Eosinophils 0.1, Absolute Basophils 0, PUBS MCHC 33.6 Microbiology 09/04 1700 URINE ROUT: Urine Culture - RECD JEWEL HAMEED,ERMELINDA 09/05/16 1037: Attending MD Review Statement Attending Sign Off Attending Cosign Statement: I have: examined this patient, reviewed al EMR data, discussd w/resident/PA/ SCIENCE CENTER DISPLAY BUILDER, agreed w/resident/PA/SCIENCE CENTER DISPLAY BUILDER. Other Findings: Agree with resident plan. Will monitor glucose levels - May start Flexeril for spasm, but would avoid giving before bed as it may exacerbate DRAGAN - Continue to encourage CPAP - Oxycodone for pain, again, avoid giving before bed - Will monitor fingersticks Thank you for this consult, will follow with you.
[2016-09-05 08:10] LABS: ABSOLUTE BASOPHIL COUNT 0 /CUMM (0.0-0.2); ABSOLUTE EOSINOPHIL COUNT 0.1 /CUMM (0.0-0.7); ABSOLUTE GRANULOCYTE CT 12.4 /CUMM (1.4-6.5); ABSOLUTE LYMPH COUNT 1.4 /CUMM (1.2-3.4); ABSOLUTE MONOCYTE COUNT 1.4 /CUMM (0.10-0.60); BASOPHIL % 0 % (0.0-2.0); EOSINOPHIL % 0.7 % (0-5); HEMATOCRIT 40.3 % (42-52); MEAN CORPUSCULAR HGB 29.5 PG (27.0-31.0); MEAN CORPUSCULAR HGB CONC 33.6 G/DL (33.0-37.0); MEAN CORPUSCULAR VOLUME 87.9 FL (80.0-94.0); MEAN PLATELET VOLUME 8.7 FL (7.4-10.4); PLATELET COUNT 224 /CUMM (130-400); RBC DISTRIBUTION WIDTH 14.7 % (11.5-14.5); RED BLOOD CELL CT 4.59 /CUMM (4.70-6.10); WHITE BLOOD CELL COUNT 15.4 /CUMM (4.8-10.8)
--- NOTE | 2016-09-05 12:11 | PN- Urology ---
Surgical Brief Attending Note Brief Attending Note: Pt extremely fatigued and pain not well controlled: VSS Afebrile. Neph. site with large bleeding. abd distended/soft. has difficulty ambulating/standing post op due to pain/ fatigue constipation is now an issue for pt. with abd. bloating. plan: daily CBC to monitor blood loss anemia Will change pain meds keep edmonds until creatinine at baseline. will need to keep pt in hospital with BID drsg. changes. and voiding trial on thursday.
[2016-09-06 07:08] VITALS: BP 103/59
[2016-09-06 08:40] LABS: ABSOLUTE BASOPHIL COUNT 0 /CUMM (0.0-0.2); ABSOLUTE EOSINOPHIL COUNT 0.4 /CUMM (0.0-0.7); ABSOLUTE GRANULOCYTE CT 10.4 /CUMM (1.4-6.5); ABSOLUTE LYMPH COUNT 2.7 /CUMM (1.2-3.4); ABSOLUTE MONOCYTE COUNT 1.1 /CUMM (0.10-0.60); BASOPHIL % 0.2 % (0.0-2.0); EOSINOPHIL % 2.9 % (0-5); GRANULOCYTE % 70.9 % (42.2-75.2); HEMATOCRIT 37.5 % (42-52); MEAN CORPUSCULAR HGB 29.5 PG (27.0-31.0); MEAN CORPUSCULAR HGB CONC 33.7 G/DL (33.0-37.0); MEAN CORPUSCULAR VOLUME 87.5 FL (80.0-94.0); MEAN PLATELET VOLUME 8.2 FL (7.4-10.4); PLATELET COUNT 198 /CUMM (130-400); RBC DISTRIBUTION WIDTH 14.6 % (11.5-14.5); RED BLOOD CELL CT 4.28 /CUMM (4.70-6.10); WHITE BLOOD CELL COUNT 14.7 /CUMM (4.8-10.8)
--- NOTE | 2016-09-06 14:00 | PN- Att Addend ---
Attending Addendum Attending Brief Note S: The patient notes pain in left flank relieved by morphine. No significant bleeding this morning noted. Does note some constipation. Sugars running high. O: VS: Vital Signs Date Time Temp Pulse Resp B/P B/P Pulse O2 O2 Flow FiO2 Mean Ox Delivery Rate 09/06 1600 92 Nasal 3.0L Cannula 09/06 1505 98.5 93 20 102/58 92 Nasal 2.0L Cannula 09/06 0907 90 103/59 09/06 0905 90 103/59 09/06 0832 94 Nasal 3.0L Cannula 09/06 0708 98.1 90 20 103/59 92 09/06 0140 98.0 09/06 0046 100.9 05 0000 94 Nasal 3.0L Cannula 09/05 2347 100.9 98 20 130/82 94 Nasal 3.0L Cannula Intake & Output 09/06 1600 09/06 0800 09/06 0000 Intake Total 1500 720 630 Output Total 1200 1000 1300 Balance 300 -280 -670 Intake, IV 600 600 150 Intake, Oral 900 120 480 Number 0 Bowel Movements Output, Urine 1200 1000 1300 Current Medications Sig/Lux Start time Last Medication Dose Route Stop Time Status Admin Acetaminophen 650 MG Q6-PRN PRN 09/06 0030 AC 09/06 PO 0046 Aspirin 325 MG DAILY 09/05 1000 AC 09/06 PO 0849 Ciprofloxacin 500 MG BID 09/05 1214 AC 09/06 PO 09/09 1213 0848 Cyclobenzaprine HCl 10 MG TID 09/05 1000 AC 09/06 PO 1617 Docusate Sodium 100 MG TID 09/05 1600 AC 09/06 PO 1617 Fluticasone 2 SPRAY DAILY 09/05 1000 AC Propionate LINH Insulin Aspart 0 TIDAC 09/06 1700 AC 09/06 SC 1721 Insulin Aspart 0 TIDAC 09/05 0800 DC 09/06 SC 1228 Insulin Detemir 10 UNITS BID 09/05 1000 AC 09/06 SC 0847 Lisinopril 5 MG DAILY 09/05 1205 AC 09/06 PO 0905 Metoprolol Succinate 50 MG DAILY 09/05 1000 AC 09/05 PO 0932 Morphine Sulfate 2 MG Q4P PRN 09/05 1400 AC 09/06 IV 1411 Nicotinic Acid 500 MG WITH MEALS 09/05 0800 AC 09/06 PO 1721 Omeprazole 20 MG DAILY AC 09/06 0700 AC 09/06 PO 0635 Omeprazole 40 MG DAILY AC 09/05 0700 DC 09/05 PO 0559 Oxycodone HCl 10 MG TID 09/05 1000 AC 09/06 PO 1617 Oxycodone/ 2 TAB Q4P PRN 09/05 1215 AC 09/05 Acetaminophen PO 1355 Pregabalin 25 MG BID 09/05 1206 AC 09/06 PO 0914 Senna 187 MG QPM PRN 09/065 UNVr PO Sodium Chloride 1,000 ML Q13H 09/05 0900 AC 09/06 IV 1228 Zolpidem Tartrate 5 MG AT BEDTIME NEED.. 09/04 1515 AC 09/05 PO 2112 Physical Exam: HEENT: carmina- moist mucosa Neck: no JVD Chest: diminished breath sounds otherwise clear Cor: RRR, nl S1, S2 w/o murm Abd: BS+, soft, obese, dressing left flank dry and intact Ext: 1+ edema, mild calf tenderness bilateral (?secondary to ALPS). Labs/Tests: Venous US LE- negative for DVT Laboratory Tests 09/06/16 0720: Anion Gap 11, Estimated GFR 59 L, BUN/Creatinine Ratio 19.2, CBC w Diff NO MAN DIFF REQ, RBC 4.28 L, MCV 87.5, MCH 29.5, RDW 14.6 H, MPV 8.2, Gran % 70.9, Lymphocytes % 18.3 L, Monocytes % 7.7, Eosinophils % 2.9, Basophils % 0.2, Absolute Granulocytes 10.4 H, Absolute Lymphocytes 2.7, Absolute Monocytes 1.1 H, Absolute Eosinophils 0.4, Absolute Basophils 0, PUBS MCHC 33.7 Impression/Plan: #Staghorn Calculus- s/p lithotripsy. Some bleeding noted by Dr. Meyers. Pain controlled by Morphine. Plan: Will continue to follow. 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 DVT was excluded with venous US today. Plan: Continue to follow. Patient refusing ALPS. #DM2- sugars slightly high on low dose scale of insulin. Glu 387, 288 this morning. Plan: Will increase insulin to standard sliding scale. #CAD/HTN- stable. Plan: Continue Lisinopril and Metoprolol. #GERD- stable on omeprazole. Plan: Continue omeprazole. #Constipation- due to narcotics/etc. Plan: Bowel regimen.
[2016-09-06 15:05] VITALS: BP 102/58
--- NOTE | 2016-09-06 15:56 | ULTRASOUND REPORT ---
EXAMINATION: US TRIPLEX OF LOWER EXTREMITIES, BILATERAL CLINICAL INFORMATION: Edema. COMPARISON: None TECHNIQUE: Color-flow triplex imaging with spectral analysis and compression Doppler were performed on the lower extremities. FINDINGS: Respiratory variation, normal compression and augmented flow are noted throughout the lower extremities. The visualized common femoral vein, superficial femoral vein, profunda femoral vein, popliteal vein and visualized portions of the calf veins show no evidence of deep venous thrombosis. There is no Holliday's cyst. IMPRESSION: No evidence of deep venous thrombosis involving the lower extremities.
[2016-09-06 22:07] VITALS: BP 124/60
[2016-09-07 06:57] VITALS: BP 111/54
[2016-09-07 08:09] LABS: ABSOLUTE BASOPHIL COUNT 0 /CUMM (0.0-0.2); ABSOLUTE EOSINOPHIL COUNT 0.7 /CUMM (0.0-0.7); ABSOLUTE GRANULOCYTE CT 7.4 /CUMM (1.4-6.5); ABSOLUTE LYMPH COUNT 2.5 /CUMM (1.2-3.4); ABSOLUTE MONOCYTE COUNT 0.9 /CUMM (0.10-0.60); BASOPHIL % 0.2 % (0.0-2.0); EOSINOPHIL % 6.5 % (0-5); GRANULOCYTE % 63.8 % (42.2-75.2); HEMATOCRIT 36.2 % (42-52); MEAN CORPUSCULAR HGB 29.3 PG (27.0-31.0); MEAN CORPUSCULAR HGB CONC 33.3 G/DL (33.0-37.0); MEAN PLATELET VOLUME 7.7 FL (7.4-10.4); PLATELET COUNT 199 /CUMM (130-400); RBC DISTRIBUTION WIDTH 14.3 % (11.5-14.5); RED BLOOD CELL CT 4.12 /CUMM (4.70-6.10); WHITE BLOOD CELL COUNT 11.6 /CUMM (4.8-10.8)
--- NOTE | 2016-09-07 09:51 | NUR ---
XL TEDS PLACED ON PT. WILL CONTINUE TO MONITOR.
[2016-09-07 14:26] VITALS: BP 102/73
[2016-09-07 21:44] VITALS: BP 110/72
--- NOTE | 2016-09-07 23:54 | NUR ---
AT 1800, DRAINAGE NOTED FROM AROUND THE CHEW INSERTION. DR. RAYO CALLED WHO SAID IT WAS OK LONG URINE WAS STILL DRAINING INTO THE CHEW. VERBAL ORDER TO FLUSH CHEW CATHER W 30 MLS OF STERILE WATER GIVEN OVER THE PHONE.
[2016-09-08 06:14] VITALS: BP 118/70
--- NOTE | 2016-09-08 06:26 | PN- Att Addend ---
See Addendum Attending Addendum Attending Brief Note S: The patient feels improved today with decreased pain. Still hematuria noted via catheter. O: VS: Vital Signs Date Time Temp Pulse Resp B/P B/P Pulse O2 O2 Flow FiO2 Mean Ox Delivery Rate 09/08 613 97.8 88 22 118/70 95 Nasal 3.0L Cannula 09/08 0000 Nasal 3.0L Cannula 09/07 2144 99.0 94 94 110/72 94 Nasal 3.0L Cannula 09/07 1600 Nasal 3.0L Cannula 09/07 1426 98.6 84 20 102/73 94 Nasal 3.0L Cannula 09/07 0829 85 111/54 09/07 0829 85 111/54 09/07 0800 Nasal 3.0L Cannula 09/07 0657 98.3 85 20 111/54 94 Intake & Output 09/08 0800 09/08 0000 09/07 1600 Intake Total 1080 1020 1080 Output Total 1300 1100 600 Balance -220 -80 480 Intake, IV 600 600 600 Intake, Oral 480 420 480 Output, Urine 1300 1100 600 Current Medications Sig/Lux Start time Last Medication Dose Route Stop Time Status Admin Acetaminophen 650 MG Q6-PRN PRN 09/06 0030 AC 09/06 PO 0046 Aspirin 325 MG DAILY 09/05 1000 AC 09/07 PO 0829 Ciprofloxacin 500 MG BID 09/05 1214 AC 09/07 PO 09/09 1213 2119 Cyclobenzaprine HCl 10 MG TID 09/05 1000 AC 09/07 PO 2119 Docusate Sodium 100 MG TID 09/05 1600 AC 09/07 PO 2119 Fluticasone 2 SPRAY DAILY 09/05 1000 AC 09/07 Propionate LINH 0830 Insulin Aspart 0 TIDAC 09/06 1700 AC 09/07 SC 1651 Insulin Detemir 10 UNITS BID 09/05 1000 AC 09/07 SC 2119 Lisinopril 5 MG DAILY 09/05 1205 AC 09/07 PO 0829 Metoprolol Succinate 50 MG DAILY 09/05 1000 AC 09/07 PO 0829 Morphine Sulfate 2 MG Q4P PRN 09/05 1400 AC 09/08 IV 0522 Nicotinic Acid 500 MG WITH MEALS 09/05 0800 AC 09/07 PO 1656 Omeprazole 20 MG DAILY AC 09/06 0700 AC 09/08 PO 0522 Oxycodone HCl 10 MG TID 09/05 1000 AC 09/07 PO 2118 Oxycodone/ 2 TAB Q4P PRN 09/05 1215 AC 09/08 Acetaminophen PO 0324 Pregabalin 25 MG BID 09/05 1206 AC 09/07 PO 2117 Senna 187 MG QPM PRN 09/06 2044 AC PO Sodium Chloride 1,000 ML Q13H 09/05 0900 AC 09/08 IV 0132 Zolpidem Tartrate 5 MG AT BEDTIME NEED.. 09/04 1515 AC 09/07 PO 2126 Physical Exam: HEENT: carmina- moist mucosa Neck: no JVD Chest: diminished BS at bases, clear Cor: RRR, nl S1, S2 w/o murm Abd: BS+, non-tender Ext: mild edema w/o change better with support stockings Labs/Tests: Venous US LE- negative for DVT Laboratory Tests 09/07/16 0745: Anion Gap 10, Estimated GFR 54 L, BUN/Creatinine Ratio 15.4, CBC w Diff NO MAN DIFF REQ, RBC 4.12 L, MCV 88.0, MCH 29.3, RDW 14.3, MPV 7.7, Gran % 63.8, Lymphocytes % 21.7, Monocytes % 7.8, Eosinophils % 6.5 H, Basophils % 0.2, Absolute Granulocytes 7.4 H, Absolute Lymphocytes 2.5, Absolute Monocytes 0.9 H, Absolute Eosinophils 0.7, Absolute Basophils 0, PUBS MCHC 33.3 09/06/16 0720: Anion Gap 11, Estimated GFR 59 L, BUN/Creatinine Ratio 19.2, CBC w Diff NO MAN DIFF REQ, RBC 4.28 L, MCV 87.5, MCH 29.5, RDW 14.6 H, MPV 8.2, Gran % 70.9, Lymphocytes % 18.3 L, Monocytes % 7.7, Eosinophils % 2.9, Basophils % 0.2, Absolute Granulocytes 10.4 H, Absolute Lymphocytes 2.7, Absolute Monocytes 1.1 H, Absolute Eosinophils 0.4, Absolute Basophils 0, PUBS MCHC 33.7 Impression/Plan: #Staghorn Calculus- s/p lithotripsy. Some bleeding noted by Dr. Meyers. Pain controlled by Morphine. Plan: Will continue to follow. 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 DVT was excluded with venous US showed no evidence DVT. Now with support stockings and feels better. Plan: Continue to follow. #DM2- sugars improved on normal sentitivity insulin sliding scale. Glu 205 this morning. Plan: Continue current sliding scale. #CAD/HTN- stable. Plan: Continue Lisinopril and Metoprolol. #GERD- stable on omeprazole. Plan: Continue omeprazole. #Constipation- due to narcotics/etc. Plan: Bowel regimen initiated.
--- NOTE | 2016-09-08 07:31 | PN- Medicine Consult ---
ARSH HAMEED,NANDO 09/08/16 0730: Assessment/Plan Assessment/Plan Assessment: This is a 76-year-old pleasant gentleman who we were asked to evaluate for medical comanagement status post day 1 lithotripsy after staghorn calculus operated by Dr. Meyers. Assessment Weekend events and notes noted. 1.Postop day 4 S/P lithitripsy, patient is in mild distress due spasms. 1. History of hypertension 2. History of diabetes mellitus 3. History of obstructive sleep apnea, noncompliant with CPAP at night 4. History of recurrent kidney stones 5. History of DVT status post IVC filter not an anticoagulation 6. History of coronary artery disease status post stent placement 7. Acute on chronic kidney disease(CkD stage I) Plan: Plan The patient pain is better control .He is tolerating the flexeril well. Recommend to dc IV morphine and continue with Oxycdodone. Sugars ranging from 230-275. Recommed in creasing the Sliding scale.( we changed in the order sheet) C/w Levemir 10 units BID Voiding trials today C/w IV fluids until RIA resolves Patient is eating well and we can dc fluids Plan for OR tomorrow to reposition the Ureteral stent NPO after midnight and recommedn holding the morning levemir but do give the pm dose of levemir Switch novolog to Novolin Insulin at bedtime toda while NPO he can safely resume his OHG on discharge. Patient can Incentive spirometry-(patient was not doig the technique well . incentive spirometry technique redinforced.) Patient is reluctant to use CPAP at night Full code Medical team can sign off and dick berg be dsicahrged tomorroa after the OR Update at 2:45 PM I spoke to Dr. Meyers and discussed with him the above plan. He recommended that he is planning on taking the patient back to work in the morning to reposition the ureteral stent I suggested the following plan 1. We will give the patient night dose of Levemir and hold the morning Levemir by the patient is nothing by mouth. We'll also switch from NovoLog and Novolin sliding scale 2. Patient can be safely discharged to oral hypoglycemic agents at the time of discharge 3. Patient can be discharged from the war tomorrow Medical team will sign off on the case. Please call back if any questions thank you for allowing us to participate in the patient's care Subjective Subjective: patient is feeling better. He says the pain is better with flexeril and wants us to recomend that in his home meds. He is awaiting voiding trials today Objective Last 24 Hrs of Vital Signs/I&O Vital Signs Date Time Temp Pulse Resp B/P B/P Pulse O2 O2 Flow FiO2 Mean Ox Delivery Rate 09/08 0822 122/78 09/08 0800 94 Nasal 2.0L Cannula 09/08 0756 20 94 Nasal 2.0L Cannula 09/08 0614 97.8 88 22 118/70 95 Nasal 3.0L Cannula 09/08 0000 Nasal 3.0L Cannula 09/07 2144 99.0 94 94 110/72 94 Nasal 3.0L Cannula 09/07 1600 Nasal 3.0L Cannula 09/07 1426 98.6 84 20 102/73 94 Nasal 3.0L Cannula Intake & Output 09/08 1600 09/08 0800 05 0000 Intake Total 1080 1020 Output Total 1300 1100 Balance -220 -80 Intake, IV 600 600 Intake, Oral 480 420 Output, Urine 1300 1100 Physical Exam General Appearance: well developed/nourished, no apparent distress, alert Head: atraumatic, normal appearance Ears, Nose, Throat: normal pharynx, normal ENT inspection Cardiovascular: regular rate/rhythm Respiratory: normal breath sounds, chest non-tender Current Medications: Current Medications Sig/Lux Start time Last Medication Dose Route Stop Time Status Admin Acetaminophen 650 MG Q6-PRN PRN 09/06 0030 AC 09/06 PO 0046 Aspirin 325 MG DAILY 09/05 1000 AC 09/08 PO 0822 Ciprofloxacin 500 MG BID 09/05 1214 AC 09/08 PO 09/09 1213 0822 Cyclobenzaprine HCl 10 MG TID 09/05 1000 AC 09/08 PO 0822 Docusate Sodium 100 MG TID 09/05 1600 AC 09/08 PO 0822 Fluticasone 2 SPRAY DAILY 09/05 1000 AC 09/08 Propionate LINH 0821 Insulin Aspart 0 TIDAC 09/06 1700 AC 09/08 SC 0810 Insulin Detemir 10 UNITS BID 09/05 1000 AC 09/08 SC 0821 Lisinopril 5 MG DAILY 09/05 1205 AC 09/08 PO 0822 Metoprolol Succinate 50 MG DAILY 09/05 1000 AC 09/08 PO 0822 Morphine Sulfate 2 MG Q4P PRN 09/08 0830 AC IV Morphine Sulfate 2 MG Q4P PRN 09/05 1400 DC 09/08 IV 0522 Nicotinic Acid 500 MG WITH MEALS 09/05 0800 AC 09/08 PO 0822 Omeprazole 20 MG DAILY AC 09/06 0700 AC 09/08 PO 0522 Oxycodone HCl 10 MG TID 09/05 1000 AC 09/08 PO 0821 Oxycodone/ 2 TAB Q4P PRN 09/05 1215 AC 09/08 Acetaminophen PO 0324 Patient Medication 1 UNIT ONE NR 09/08 0830 Teaching ED 09/08 1430 Pregabalin 25 MG BID 09/05 1206 AC 09/08 PO 0821 Senna 187 MG QPM PRN 09/06 2045 AC 09/08 PO 0822 Sodium Chloride 1,000 ML Q13H 09/05 0900 DC 09/08 IV 0132 Zolpidem Tartrate 5 MG AT BEDTIME NEED.. 09/04 1515 AC 09/07 PO 2127 Results Last 24 Hrs Lab/Quinn Results: Laboratory Tests 09/07 0745 Chemistry Sodium (137 - 145 mmol/L) 138 Potassium (3.5 - 5.1 mmol/L) 4.3 Chloride (98 - 107 mmol/L) 103 Carbon Dioxide (22 - 30 mmol/L) 25 Anion Gap (5 - 16) 10 BUN (9 - 20 mg/dL) 20 Creatinine (0.7 - 1.2 mg/dL) 1.3 H Estimated GFR (>60 ml/min) 54 L BUN/Creatinine Ratio (7 - 25 %) 15.4 Hematology CBC w Diff NO MAN DIFF REQ WBC (4.8 - 10.8 /CUMM) 11.6 H RBC (4.70 - 6.10 /CUMM) 4.12 L Hgb (14.0 - 18.0 G/DL) 12.1 L Hct (42 - 52 %) 36.2 L MCV (80.0 - 94.0 FL) 88.0 MCH (27.0 - 31.0 PG) 29.3 RDW (11.5 - 14.5 %) 14.3 Plt Count (130 - 400 /CUMM) 199 MPV (7.4 - 10.4 FL) 7.7 Gran % (42.2 - 75.2 %) 63.8 Lymphocytes % (20.5 - 51.1 %) 21.7 Monocytes % (1.7 - 9.3 %) 7.8 Eosinophils % (0 - 5 %) 6.5 H Basophils % (0.0 - 2.0 %) 0.2 Absolute Granulocytes (1.4 - 6.5 /CUMM) 7.4 H Absolute Lymphocytes (1.2 - 3.4 /CUMM) 2.5 Absolute Monocytes (0.10 - 0.60 /CUMM) 0.9 H Absolute Eosinophils (0.0 - 0.7 /CUMM) 0.7 Absolute Basophils (0.0 - 0.2 /CUMM) 0 PUBS MCHC (33.0 - 37.0 G/DL) 33.3 KENROY HAMEED,NASIMA 09/08/16 1530: Attending MD Review Statement Attending Sign Off Attending Cosign Statement: I have: examined this patient, reviewed [facility] EMR data, personally reviewd images, discussd w/resident/PA/ORANGE PICKING SUPERVISOR, discussed mgmt plan w/pt, agreed w/resident/ PA/ORANGE PICKING SUPERVISOR. Other Findings: 76-year-old male with past medical history of hypertension, coronary artery disease, diabetes, DVT with an IVC filter who is here on the urological service after treatment for a staghorn calculus and stent placement. We were consulted for control of sugars and pressure. He takes Janumet and Amaryl at home both of which are on hold and we have him on long-acting insulin. His RIA has resolved nicely and his creatinine is down to 1.3 (baseline in September and July 2015), I think on discharge we can safely restart his Janumet and his A. At this point I'm more concerned about his urological issue, his ongoing hematuria and his multiple questions reagrding this. The resident will talk to Dr. Meyers to ensure that he sees the patient and adequate follow-up.
--- NOTE | 2016-09-08 09:05 | NUR ---
NURSING NOTE: PT LEFT FLOOR VIA STRETCVHER WITH DISTRIBUTION FORABD XRAY PER MD ORDER. PT AWAKE, A/OX3, 2L NC, IV PATENT, CHEW INTACT. TICKET TO RIDE COMPLETE, CHART SENT WITH PT. AWAIT RETURN TO FLOOR.
--- NOTE | 2016-09-08 10:00 | NUR ---
NURSING NOTE: PT BACK TO FLOOR VIA STRETCHER WITH DISTRIBUTION FROM ABD XRAY, SETTLED INTO RECLNER, 2L NC DENIES PAIN, NEPHROSTOMY TUBE TO L FLANK, CHEW INTACT. DENIES COMPLAINTS.
--- NOTE | 2016-09-08 11:33 | RADIOLOGY REPORT ---
EXAMINATION: XR ABDOMEN MULTIPLE VIEWS CLINICAL INDICATION: Leakage around nephrostomy tube COMPARISON: Left kidney interventions 09/04/2016 TECHNIQUE: 4 films of the abdomen were obtained. FINDINGS: Left internal ureteral stent in expected orientation. A percutaneous left-sided nephrostomy tube is incompletely visualized but the pigtail appears in expected orientation overlying the lower pole renal shadow. Calculi are visualized projecting over the left upper pole renal shadow. Nonobstructive bowel gas pattern. IVC filter again visualized in expected orientation. Surgical clips of the right upper quadrant consistent with cholecystectomy. IMPRESSION: Left percutaneous nephrostomy tube and internal left ureteral stent in expected orientation. Renal calculi project over the upper pole of the left renal shadow.
[2016-09-08 13:54] VITALS: BP 106/70
[2016-09-08] MEDS ORDERED: CYCLOBENZAPRIN7.5 M1 PO (14:32)
--- NOTE | 2016-09-08 14:33 | Patient Discharge Instructions ---
Discharge Instructions General Discharge Information You were seen/treated for: KIDNEY STONES Special Instructions: PLEASE F/U WITH DR FRASER IN 1 WEEK OF DISCHARGE Acute Coronary Syndrome Inclusion Criteria At DC or during hospital stay patient has or had the following: ACS DIAGNOSIS No Discharge Core Measures Meds if any: Prescribed or Continued at Discharge Meds if any: NOT Prescribed or Continued at Discharge Congestive Heart Failure Inclusion Criteria At DC or during hospital stay patient has or had the following: CHF DIAGNOSIS No Discharge Core Measures Meds if any: Prescribed or Continued at Discharge Meds if any: NOT Prescribed or Continued at Discharge Cerebrovascular accident Inclusion Criteria At DC or during hospital stay patient has or had the following: CVA/TIA Diagnosis No Discharge Core Measures Meds if any: Prescribed or Continued at Discharge Meds if any: NOT Prescribed or Continued at Discharge Venous thromboembolism Inclusion Criteria VTE Diagnosis No VTE Type NONE VTE Confirmed by (Test) NONE Discharge Core Measures - Per Current guidelines, there needs to be overlap - treatment for the first 5 days of Warfarin therapy. - If discharged on Warfarin prior to 5 days of - overlap therapy, the patient will need to be - assessed for post discharge needs including - *Post discharge parental anticoagulation - *Warfarin and/or parental anticoagulation education - *Follow up date to check INR post discharge At least 5 days overlap therapy as Inpatient No Meds if any: Prescribed or Continued at Discharge Note: Overlap Therapy is Warfarin and Anticoagulant Meds if any: NOT Prescribed or Continued at Discharge
[2016-09-08 23:32] VITALS: BP 108/78
[2016-09-09 06:32] VITALS: BP 124/80
[2016-09-09 15:41] VITALS: BP 120/62
--- NOTE | 2016-09-09 19:00 | Operative Report ---
Operative/Inv Procedure Report Surgery Date: 09/09/16 Name of Procedure: Cystoscopy, left stent exchange, left retrograde pyelogram, removal of left nephrostomy tube. Pre-Operative Diagnosis: Dislodged left stent, nephrostomy tube no longer necessary. Post-Operative Diagnosis: Same Estimated Blood Loss: less than 50ml Surgeon/Territory Service Representative: MARC FRASER MD Anesthesia: moderate sedation IV Fluids: Ancef 3 g IV Drains: 18 Iraqi Boothe catheter Specimens: Left nephrostomy tube, old left stent. Complications: None Operative/Procedure Note Note: The patient was taken to the operating room and placed on the OR table in supine position. Timeout was performed, with the patient awake, in order to confirm correct identity, procedure, laterality, anesthesia, and other pertinent perioperative information. After adequate anesthesia and antibiotics, the patient was placed in lithotomy yellow-fin stirrups draped and prepped in the usual surgical fashion. A 22 Iraqi cystoscope sheath was inserted under direct visualization. Upon entering the bladder, the bladder noted to be free of tumor free of stone. Both orifices were noted to be in their orthotopic position: with the left orifice being intubated with a stent. With an alligator forcep, through the cystoscope, the left stent was grasped. The cystoscope, along with entire stent ,was easily removed under direct visualization without difficulty. The stent was noted to be intact and sent to pathology. The 22 Iraqi cystoscope sheath with 30 angle lens was re-inserted into the urethra without difficulty. Under direct visualization the left ureter orifice was intubated with a tiger-tail ureteral catheter. Retrograde pyelogram was performed revealing no hydronephrosis, and no filling defects in the ureter or renal pelvis. A tiger catheter was removed, followed by insertion of a 0.035 Glidewire into the left ureteral orifice, which was advanced easily into the left renal pelvis. Over the Glidewire, a BARD 6X22, ureteral stent was advanced. With the proximal coil reaching the left renal pelvis, and the distal loops in the bladder, the Glidewire was removed. The stent remained in proper place both cystoscopically, and fluoroscopically. The cystoscope was removed and an 18 Iraqi Boothe catheter was inserted without difficulty. 10 mL of sterile water was placed into the balloon . The patient tolerated procedure well, and was gently turned onto his right side. The nephrostomy tube was dissected, releasing the tether. The nephrostomy tube was then gently removed and sent to pathology. The area was copiously cleaned once again and bacitracin with sterile gauze was placed onto this nephrostomy tube site. The patient tolerated procedures well was then taken to recovery in satisfactory condition. Findings: 6 x [address] Discharge Disposition: PACU CC: MARC FRASER MD
--- NOTE | 2016-09-09 19:09 | RADIOLOGY REPORT ---
EXAMINATION: XR ABDOMEN CLINICAL INDICATION: Retrograde pyelogram left stent exchange. COMPARISON: 09/08/2016 TECHNIQUE: 15 fluoroscopic images of the abdomen. FINDINGS: Left ureteral stent on the initial image. Percutaneous nephrostomy also present. Retrograde injection of contrast into the left collecting system. This is partially opacified. Replacement of a left ureteral stent on the final images. IMPRESSION: Fluoroscopic guidance for left ureteral stent exchange.
[2016-09-09 19:11] VITALS: BP 128/86
--- NOTE | 2016-09-09 19:33 | NUR ---
PATIENT RETURN TO FLOOR FROM PACU. S/P URETERAL STENTS PLACEMENT AND CHEW REINSERTION. PATIENT A+O X3. VSS. FINGERSTICK 196. DIET ORDERED. CHEW TO GRAVITY WITH CLEAR YELLOW URINE. WILL FOLLOW PLAN OF CARE.
[2016-09-09 21:59] VITALS: BP 118/82
[2016-09-10 06:55] VITALS: BP 132/80
--- NOTE | 2016-09-10 07:38 | Operative Report ---
Operative/Inv Procedure Report Surgery Date: 09/04/16 Name of Procedure: left PCNL: laser lithotrypsy of upper pole partial staghorn stone with dilatation of upperpole infundibulum. retrograde and anterade pyelogram, antegrade ureteroscopy, placement of nephrostomy tube. Pre-Operative Diagnosis: left partial staghorn Post-Operative Diagnosis: large stone trapped in upper pole of left kidney with very narrow infundibulum Estimated Blood Loss: 50ml to 100ml Surgeon/Safety Analyst: MARC FRASER MD Anesthesia: general endotracheal tube Implants: left 6x24 ureter stent and left nephrosotomy tube. Drains: left nephrostomy tube 8fr. Specimens: left renal upper pole stone fragments Complications: none Condition: position was prone with all bony prominences padded. Operative/Procedure Note Note: The patient was transported back to the operating room from interventional radiology. She was intubated on the stretcher, and placed prone on the OR table with Gelfoam, and pillows support with extremities in good and appropriate alignment. The nephrostomy tube in the right flank was draped and prepped in the usual surgical fashion. A superstiff Glidewire was inserted into the right nephrostomy tube which was advanced into the bladder without difficulty. Nephrostomy tube was removed leaving the Glidewire in place. A 1 cm incision was made alongside the Glidewire prior to passing the nephro balloon dilator. Under fluoroscopic visualization, railroading the superstiff Glidewire, the nephro balloon dilator was inserted through the skin and into the renal pelvis. With fluoroscopic visualization, the balloon was dilated maximally in order to form a tract from the skin to the right renal pelvis. The 10 [place] sheath was then gently guided over the balloon, and into the right renal pelvis. The balloon was deflated after confirming placement of the nephrostomy sheath, and the nephro balloon was removed leaving the superstiff wire in place. The nephroscope was then inserted through the nephro-sheath. , and under direct visualization the large staghorn was visualized. Using the Albanian lithoclast the large staghorn calculus was then pulverized and evacuated from the upper, middle, lower poles, and renal pelvis. Large fragments of the staghorn calculus were removed. Flexible cystoscope was inserted into the nephro-sheath. The upper middle and lower pole calyxes were evaluated to confirm no significant stone burden were in any of those calixes including the renal pelvis. The cystoscope was removed leaving the superstiff Glidewire in place. The sheath was then removed without difficulty. Over the superstiff Glidewire a nephro U stent was inserted in a railroad fashion. With the ureter portion of the tube in the ureter, the [place] portion in the renal pelvis, and the nephrostomy tube protruding through the back incision in proper place the superstiff Glidewire was removed. Antegrade pyelogram was performed in order to confirm placement and good function of the tube. The skin was closed using 2-0 silk sutures. The tube was secured to the skin using a 2-0 silk stitch, as well as Tegaderm. The patient tolerated the procedure well, all sponge needle and instrument count were correct at the end of the case. The patient was then placed onto the stretcher once again, extubated, entering to the recovery room in satisfactory condition. Discharge Disposition: PACU CC: MARC FRASER MD
[2016-09-10] MEDS ORDERED: CIPRO500 M1 PO (07:51)
[2016-09-10 08:34] LABS: ABSOLUTE BASOPHIL COUNT 0 /CUMM (0.0-0.2); ABSOLUTE EOSINOPHIL COUNT 0.9 /CUMM (0.0-0.7); ABSOLUTE LYMPH COUNT 2.3 /CUMM (1.2-3.4); ABSOLUTE MONOCYTE COUNT 0.9 /CUMM (0.10-0.60); BASOPHIL % 0.1 % (0.0-2.0); EOSINOPHIL % 7.9 % (0-5); GRANULOCYTE % 63.3 % (42.2-75.2); HEMATOCRIT 38.5 % (42-52); MEAN CORPUSCULAR HGB 28.9 PG (27.0-31.0); MEAN CORPUSCULAR HGB CONC 33.3 G/DL (33.0-37.0); MEAN CORPUSCULAR VOLUME 86.9 FL (80.0-94.0); MEAN PLATELET VOLUME 7.9 FL (7.4-10.4); PLATELET COUNT 243 /CUMM (130-400); RBC DISTRIBUTION WIDTH 14.2 % (11.5-14.5); RED BLOOD CELL CT 4.44 /CUMM (4.70-6.10)
[2016-09-10 08:58] VITALS: BP 132/60
--- NOTE | 2016-10-02 12:30 | Surgical Discharge Summary ---
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 Home Who Do You Live With? Spouse Services at Home: None What is Your Primary Language? Mohawk Review of Systems: NC X 12: EXCEPT LEFT RENAL COLIC DUE TO UPPER-POLE OBSTRUCTED INFUNDIBULUM WITH STONE. Hospital Course Course Attending Physician: MARC FRASER MD Primary Care Physician: INDIGO ALFARO MD Hospital Course: UNREMARKABLE POST-OP: DC'D HOME WITH INTERNALIZED LEFT STENT AND NO NEPHROSTOMY TUBE. Allergies: Coded Allergies: fentanyl (GI UPSET 06/22/15) Uncoded Allergies: med used during stress test (UNKNOWN 01/14/16) Disposition Summary Disposition Principal Diagnosis: LEFT STAGHORN CALCULUS Additional Diagnosis: LEFT OBSTRUCTED UPPER POLE STONE WITH SEVERE STRICTURED LEFT UPPER POLE INFUNDIBULUM AND STONE. Discharge Disposition: home or self care Discharge Instructions General Discharge Information Code Status: Full Code Patient's Diet: REGULAR Patient's Activity: TOLERATED Follow-Up Instructions/Appts: F/U 4-6 WEEKS. Medications at Discharge Discharge Medications: Continue taking these medications: Loratadine (Claritin) 10 MG TABLET 1 Tablet ORAL DAILY Comments: Last Taken: 09/10/16 Time: 0900AM Pantoprazole Sodium (Protonix) 40 MG TABLET.DR 1 Tablet ORAL DAILY Comments: NOT GIVEN Pravastatin Sodium (Pravachol) 20 MG TABLET 1 Tablet ORAL Every night Comments: Last Taken: 09/09/16 Time: 9 PM Lisinopril (Prinivil) 5 MG TABLET 1 Tablet ORAL DAILY Comments: Last Taken: 09/10/16 Time: 9 AM Glimepiride (Amaryl) 4 MG TABLET 1 Tablet ORAL DAILY Qty = 90 Comments: NOT GIVEN AT HOSPITAL Sitagliptin Phos/Metformin HCl (Janumet 50-1,000 MG Tablet) 1 EACH TABLET 1 Tablet ORAL TWICE DAILY Qty = 180 Comments: NOT GIVEN AT HOSPITAL Aspirin (Aspirin*) 325 MG TABLET 1 Tablet ORAL DAILY Comments: Last Taken: 07/11/16 Time: 9 AM Niacin (Niaspan) 500 MG TAB.ER.24H 1 Tablet ORAL Every night Qty = 90 Comments: Last Taken: 09/10/16 TIME: 0900AM Ropinirole HCl (Requip) 1 MG TABLET 1 Tablet ORAL Every night as needed for RESTLESS LEG Comments: NOT GIVEN AT HOSPITAL Oxycodone HCl (Oxycodone HCl) 10 MG TABLET 1 Tablet ORAL THREE TIMES DAILY as needed for pain Comments: Last Taken: 09/10/16 Time:1030AM Metoprolol Succ XL (Toprol Xl) 50 MG TAB 1 Tablet ORAL DAILY Comments: Last Taken: 09/10/16 Time: 9 AM Tamsulosin HCl (Tamsulosin HCl) 0.4 MG CAP.ER.24H 0.5 Capsule ORAL DAILY Comments: Last Taken: 09/10/16 Time: 0900AM Pregabalin (Lyrica) 75 MG CAPSULE 1 Capsule ORAL TWICE DAILY Comments: Last Taken: 09/10/16 Time: 0900AM Metformin HCl (Metformin HCl ER) 1,000 MG TAB.ER.24 1 Tablet ORAL DAILY Comments: Last Taken:09/10/16 Time: 0800AM Fluticasone Propionate (Flonase Allergy Relief) 50 MCG/ACTUATION SPRAY.SUSP DAILY Comments: Last Taken: 09/10/16 Time: 0900AM Zolpidem Tartrate (Zolpidem Tartrate) 5 MG TABLET 1 Tablet ORAL Every night as needed as needed for SLEEP Comments: Last Taken: 09/09/16 Time: 2200PM Start taking the following new medications: Cyclobenzaprine HCl (Cyclobenzaprine HCl) 7.5 MG TABLET 1 Tablet ORAL THREE TIMES DAILY Qty = 30 No Refills Comments: Last Taken: 09/10/16 Time: 0900AM Ciprofloxacin HCl (Cipro) 500 MG TABLET 1 Tablet ORAL TWICE DAILY Qty = 20 No Refills Comments: Last Taken:09/09/16 Time: 0900AM Copies To: BRIA HAMEED,MARC Attending MD Review Statement Attending Statement Attending MD Statement: examined this patient, discuss 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
== END 2016-09-10 12:00 | DRG 669 ==
LOC: SDA 01:25 → 2NB 01:25 → ENRESERV 15:37 → 2NB 17:17 → ENPENDDIS 09-10 07:53 → 2NB 09-10 12:00
PROVIDERS: Internal Medicine; ADMIT Urology
PROC: 0TC47ZZ Extirpation of Matter from Left Kidney Pelvis, Via Natural or Artificial Opening (ICD-10-PCS; principal; 2016-09-04)
PROC: 0T9430Z Drainage of Left Kidney Pelvis with Drainage Device, Percutaneous Approach (ICD-10-PCS; principal; 2016-09-04)
PROC: 0TJB8ZZ Inspection of Bladder, Via Natural or Artificial Opening Endoscopic (ICD-10-PCS; principal; 2016-09-04)
PROC: 0TP5X0Z Removal of Drainage Device from Kidney, External Approach (ICD-10-PCS; 2016-09-09)
PROC: BT1FZZZ Fluoroscopy of Left Kidney, Ureter and Bladder (ICD-10-PCS; 2016-09-09)
PROC: 0T778DZ Dilation of Left Ureter with Intraluminal Device, Via Natural or Artificial Opening Endoscopic (ICD-10-PCS; 2016-09-09)
PROC: 0TP98DZ Removal of Intraluminal Device from Ureter, Via Natural or Artificial Opening Endoscopic (ICD-10-PCS; 2016-09-09)
DX: N20.0 Calculus of kidney (principal); Z68.41 Body mass index [BMI] 40.0-44.9, adult; E11.9 Type 2 diabetes mellitus without complications; E66.9 Obesity, unspecified; Z79.84 Long term (current) use of oral hypoglycemic drugs; I12.9 Hypertensive chronic kidney disease with stage 1 through stage 4 chronic kidney disease, or unspecified chronic kidney disease; N18.1 Chronic kidney disease, stage 1; G47.33 Obstructive sleep apnea (adult) (pediatric)
CPT/HCPCS: 2NBSP; 2NSBP; 36415; 74000; 74020; 74475; 82355; 82436; 87040; 87086; 93005; 93010; 93970; 94799; 97116-GO; 97161-GP; 97530-GO; C1725; C1769; C2617; C9399; J0131; J0690; J1100; J1815; J1885; J2405; J7042; Q9967

== ENCOUNTER 2017-08-25 09:58 | Emergency (ER) | payer OTHER ==
[~2017-08-25 09:58] MED LIST changes: +CYCLOBENZAPRIN7.5 M1 PO; +LYRICA150 M1 PO; -LYRICA75 M1 PO
--- NOTE | 2017-08-25 10:21 | ED CARDIAC/CP/PALPITATIONS ---
History of Present Illness General Chief Complaint: Chest Pain Stated Complaint: CHEST PAIN Source: patient, old records Exam Limitations: no limitations Allergies Coded Allergies: fentanyl (GI UPSET 06/22/15) Uncoded Allergies: med used during stress test (UNKNOWN 01/14/16) Reconcile Medications Aspirin (Aspirin*) 325 MG TABLET 1 TAB PO DAILY BLOOD THINNER (Reported) Diclofenac Sodium (Voltaren) 1 % GEL..GRAM. 1 GM TOP 4 TIMES/DAY PAIN ( Reported) apply to affected area(s) Exenatide Microspheres (Bydureon Pen) 2 MG/0.65 ML PEN.INJCTR 1 INJ SC Tu UNKNOWN (Reported) Fluticasone Propionate (Flonase Allergy Relief) 50 MCG/ACTUATION SPRAY.SUSP ALLERGIES (Reported) Gabapentin 300 MG CAPSULE 1 CAP PO QPM SLEEP (Reported) Glimepiride (Amaryl) 4 MG TABLET 1 TAB PO DAILY DIABETES (Reported) Lisinopril (Prinivil) 5 MG TABLET 1 TAB PO DAILY BP (Reported) Loratadine (Claritin) 10 MG TABLET 1 TAB PO DAILY ALLERGIES (Reported) Metformin HCl (Metformin HCl ER) 1,000 MG TAB.ER.24 1 TAB PO DAILY DM II ( Reported) Metoprolol Succ XL (Toprol Xl) 50 MG TAB 1 TAB PO DAILY BLOOD PRESSURE ( Reported) Naloxegol Oxalate (Movantik) 25 MG TABLET 1 TAB PO DAILY UNKNOWN (Reported) Niacin (Niaspan) 500 MG TAB.ER.24H 1 TAB PO QPM CHOLESTEROL (Reported) Oxycodone HCl 10 MG TABLET 1 TAB PO TID PRN pain (Reported) Pantoprazole Sodium (Protonix) 40 MG TABLET.DR 1 TAB PO DAILY GERD (Reported) Pravastatin Sodium (Pravachol) 20 MG TABLET 1 TAB PO QPM CHOLESTEROL ( Reported) Pregabalin (Lyrica) 150 MG CAPSULE 1 CAP PO BID PAIN (Reported) Ropinirole HCl (Requip) 1 MG TABLET 1 TAB PO QPM PRN RESTLESS LEG (Reported) Sertraline HCl 25 MG TABLET 1 TAB PO DAILY DEPRESSION (Reported) Sitagliptin Phos/Metformin HCl (Janumet 50-1,000 MG Tablet) 1 EACH TABLET 1 TAB PO BID DIABETES (Reported) Tamsulosin HCl 0.4 MG CAP.ER.24H 0.5 CAP PO DAILY URINARY OBSTRUCTION ( Reported) Zolpidem Tartrate 5 MG TABLET 1 TAB PO QPMP PRN SLEEP (Reported) Triage Note: 77 YO MALE TO TRIAGE C/O L SIDED CHEST PAIN X3 DAYS. PT REPORTS HE HAS BEEN MOVING HEAVY THINGS SO HE ISNT SURE IF ITS MUSCULAR. PT HX OF CARDIAC STENTS. PT DENIES SOB. STATES PAIN SITS ON THE L SIDE OF CHEST AND IS NONRADIATING. PT TO ER ROOM 5 ON ARRIVAL FOR EKG AND EVAL. Triage Nurses Notes Reviewed? yes Onset: Abrupt Duration: day(s): (3), x seconds and resolves Timing: recent history Quality/Severity: mild, aching, "spasms" Location: left side Radiation: no radiation Activities at Onset: none Nitro Today/Relief: no nitro taken today Aspirin Today: 325 mg x 1, provided at home Associated Symptoms: denies HPI: 77 year old male with past medical history of NIDDM, HTN, HLD, CAD s/p stent in 2001, right leg DVT s/p IVC filter in 2005, kidney stones presents to ER for evaluation complaining of left-sided nonradiating chest pain for the past 3 days intermittent in nature lasting a few seconds and resolving on its own. Patient states this is not feels similar to when he had his heart attack is followed by dairy equipment specialist Dr. Hayden who he states he saw last month and had a normal workup at that time. He denies any associated dizziness shortness of breath nausea vomiting. Patient states she's been under increased stress with his daughter and he is recently been moving so he is been doing a lot of moving around and carrying boxes there is no trauma or fall. No cough vision changes headache calf pain recent travel. He is not taken anything for his symptoms. (Andrew Paez) Vital Signs & Intake/Output Vital Signs & Intake/Output Vital Signs Date Time Temp Pulse Resp B/P B/P Pulse O2 O2 Flow FiO2 Mean Ox Delivery Rate 08/25 1352 98.8 77 20 116/60 95 Room Air 08/25 1250 98.9 70 18 110/55 95 Room Air 08/25 1031 Room Air 08/25 1005 98.6 74 18 125/76 98 Room Air (Cristal HAMEED,Alvaro Adams) Past History Travel History Traveled to [place] past 21 day No Medical History Any Pertinent Medical History? 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 No (Andrew Paez) Review of Systems Review of Systems Constitutional: Reports: see HPI. Comments Review of systems: See HPI, All other systems negative. Constitutional, no chills no fever, no malaise HEENT: no sore throat no congestion Cardiovascular: chest pain , no palpitation Skin: no rashes, no change in skin Respiratory: No dyspnea no cough no sputum GI: No nausea no vomiting, no diarrhea, : No dysuria No hematuria, no frequency Muscle skeletal: No joint pain, no back pain, no neck pain Neurologic: no headache pysc: (+) stress Heme/endocrine: No bruising Immunology: No lymphadenopathy (Andrew Paez) Physical Exam Physical Exam General Appearance: well developed/nourished, alert, awake Cardiovascular: regular rate/rhythm Comments: Well-developed well-nourished person in no acute distress HEENT: Normal EENT exam; PERRL, EOMI, HEAD is atraumatic. moist mucous membranes. Neck: Supple, normal range of motion Back: Full range of motion Cardiovascular: Regular rate and rhythms no murmurs rubs Respiratory: Chest nontender.There were no bony deformities, no asymmetry. No respiratory distress. Patient speaking in full complete sentences. Breath sounds clear to auscultation bilaterally: NO W/R/R Abdomen: Soft, nontender nondistended, no appreciable organomegaly. Normal bowel sounds. No rebound/guarding, Extremity: No edema, full range of motion of extremities Neuro: Alert oriented x3, motor sensory normal, There were no obvious focal neurologic abnormalities. Skin: No appreciable rash on exposed skin, skin is warm and dry. Psych: Mood and affect is normal, memory and judgment is normal. Core Measures ACS in differential dx? Yes CVA/TIA Diagnosis No Sepsis Present: No Sepsis Focused Exam Completed? No (Andrew Paez) Progress Differential Diagnosis: AMI, aortic dissection, atrial fibrillation, musculoskeletal pain, myocarditis, pericarditis, pneumothorax, pulmonary embolism, unstable angina Diagnostic Imaging: Viewed by Me: Radiology Read. Discussed w/RAD: Radiology Read. Radiology Impression: PATIENT: MONY COYLE PRESENT AGE: 77 PATIENT ACCOUNT NO: [id number] : 41 LOCATION: [facility] ORDERING PHYSICIAN: Alvaro Bee MD SERVICE DATE: 08/25/17 EXAM TYPE: RAD - XRY-PORTABLE CHEST XRAY EXAMINATION: XR PORTABLE CHEST CLINICAL INFORMATION: 77- year-old female patient with left-sided chest pain. COMPARISON: Portable chest x -ray on 04/03/2015. TECHNIQUE: Portable AP semierect view of the chest was obtained. FINDINGS: No significant abnormality is noted involving the heart, lungs, mediastinum, bony thorax or soft tissues. IMPRESSION: No evidence of CHF or pleural effusion. DICTATED BY: Reji Carmen MD DATE/TIME DICTATED:1100 [address] CUTTER:JANET DATE/TIME TRANSCRIBED:08/25/171100 CONFIDENTIAL, DO NOT COPY WITHOUT APPROPRIATE AUTHORIZATION. <Electronically signed in Other Vendor System> SIGNED BY: Reji Carmen MD 08/25/171108 Initial ED EKG: normal intervals, normal p-waves, normal QRS complex, normal sinus rhythm Prior EKG: unchanged Rhythm Strip: normal sinus rhythm (Andrew Paez) Plan of Care: Orders Procedure Date/time Status Regular Diet 08/25 D Active TROPONIN LEVEL 08/25 1300 Complete EKG 08/25 1300 Active Telemetry/Concrete Journeyman 08/25 1013 Active TROPONIN LEVEL 08/25 1013 Complete MAGNESIUM 08/25 1013 Complete CBC WITHOUT DIFFERENTIAL 08/25 1013 Complete BASIC METABOLIC PANEL 08/25 1013 Complete EKG 08/25 0959 Active Laboratory Tests 08/25/17 1258: Troponin I < 0.01 08/25/17 1019: Anion Gap 12, Estimated GFR 54 L, BUN/Creatinine Ratio 19.2, Glucose 268 H, Calcium 9.1, Magnesium 1.5 L, Troponin I < 0.01, CBC w Diff NO MAN DIFF REQ, RBC 4.28 L, MCV 87.0, MCH 30.7, MCHC 35.3, RDW 13.9, MPV 8.8, Gran % 61.0, Lymphocytes % 23.5, Monocytes % 8.3, Eosinophils % 6.2 H, Basophils % 1.0, Absolute Granulocytes 5.9, Absolute Lymphocytes 2.3, Absolute Monocytes 0.8 H, Absolute Eosinophils 0.6, Absolute Basophils 0.1 Patient denies any complaints at this time labs ordered old records reviewed case discussed with Dr. Bee agrees with plan discussed with patient and his plan for need for repeat troponin they're in agreement with patient continues to rest in no acute distress 1120 patient continues to rest in no acute distress denies any complaints denies pain normal sinus on the monitor pending repeat troponin Patient continues to rest in no acute distress pending repeat troponin 1300 patient resting in no acute distress normal sinus on the monitor pending repeat troponin I discussed with the patient at length all of their results. I had an extensive conversation regarding need for close follow up with their primary care physician/cardiology this week as well as return precautions. I answered all of their questions, they feel comfortable with the plan and follow-up care. (Adnrew Paez) (Cristal HAMEED,Alvaro Adams) Departure Departure Time of Disposition: 1349 Disposition: HOME OR SELF CARE Condition: Stable Clinical Impression Primary Impression: Chest pain Referrals: Iona HAMEED,Jessie Rayo (PCP/Family) Additional Instructions: Rest limit heavy lifting or prolonged exertion. Follow-up with your primary care physician this week return anytime sooner with any concerns. Departure Forms: Customer Survey General Discharge Information (Andrew Paez) PA/SALES REPRESENTATIVE PRINTING PAPER Co-Sign Statement Statement: ED Attending supervision documentation- [X] I saw and evaluated the patient. I have also reviewed all the pertinent lab results and diagnostic results. I agree with the findings and the plan of care as documented in the PA's/SALES REPRESENTATIVE PRINTING PAPER's documentation. Patient presents for evaluation of an intermittent left chest pain "like a punch" that occurs for second or 2 at a time. Physical examination reveals no rashes other signs of trauma in the area of the left chest. [] I have reviewed the ED Record and agree with the PA's/SALES REPRESENTATIVE PRINTING PAPER's documentation. [] Additions or exceptions (if any) to the PAs/SALES REPRESENTATIVE PRINTING PAPER's note and plan are summarized below: [] (Cristal HAMEED,Alvaro Adams) Critical Care Note Critical Care Note Critical Care Time: non-applicable (Adama FALK,Andrew)
[2017-08-25 10:33] LABS: ABSOLUTE BASOPHIL COUNT 0.1 /CUMM (0.0-0.2); ABSOLUTE EOSINOPHIL COUNT 0.6 /CUMM (0.0-0.7); ABSOLUTE GRANULOCYTE CT 5.9 /CUMM (1.4-6.5); ABSOLUTE LYMPH COUNT 2.3 /CUMM (1.2-3.4); ABSOLUTE MONOCYTE COUNT 0.8 /CUMM (0.10-0.60); EOSINOPHIL % 6.2 % (0-5); HEMATOCRIT 37.2 % (42-52); MEAN CORPUSCULAR HGB 30.7 PG (27.0-31.0); MEAN CORPUSCULAR HGB CONC 35.3 G/DL (33.0-37.0); MEAN PLATELET VOLUME 8.8 FL (7.4-10.4); PLATELET COUNT 210 /CUMM (130-400); RBC DISTRIBUTION WIDTH 13.9 % (11.5-14.5); RED BLOOD CELL CT 4.28 /CUMM (4.70-6.10); WHITE BLOOD CELL COUNT 9.8 /CUMM (4.8-10.8)
[2017-08-25] MEDS ORDERED: BYDUREON P2 MG/0.65 SC (10:58)
[2017-08-25] MEDS ORDERED: SERTRALINE HCL25 MG PO (10:59)
[2017-08-25] MEDS ORDERED: MOVANTIK25 M1 PO (10:59)
[2017-08-25] MEDS ORDERED: VOLTAREN100 GM TOP (11:00)
[2017-08-25] MEDS ORDERED: GABAPENTIN300 M2 PO (11:00)
--- NOTE | 2017-08-25 11:09 | RADIOLOGY REPORT ---
EXAMINATION: XR PORTABLE CHEST CLINICAL INFORMATION: 77-year-old female patient with left-sided chest pain. COMPARISON: Portable chest x-ray on 04/03/2015. TECHNIQUE: Portable AP semierect view of the chest was obtained. FINDINGS: No significant abnormality is noted involving the heart, lungs, mediastinum, bony thorax or soft tissues. IMPRESSION: No evidence of CHF or pleural effusion.
[2017-08-25 13:52] VITALS: BP 116/60
== END 2017-08-25 13:58 ==
LOC: ERH 09:58
PROVIDERS: Emergency Medicine
DX: R07.9 Chest pain, unspecified (principal)
CPT/HCPCS: 71045; 93005; 93010